=== PATIENT | female | born 1980 | race Caucasian/White ===

== ENCOUNTER → 2017-04-10 09:06 | Outpatient (CLI) | payer BC, SELFPAY ==
[2017-04-10 11:18] LABS: Thyroid Stimulating Hormone 2.67 uIU/ml (0.358-3.740)
[2017-04-10 11:38] LABS: HCG,Quantitative 82 mIU/mL
[2017-04-11 19:01] LABS: Progesterone 8.1 ng/mL (.)
== END ==
PROVIDERS: PCP Internal Medicine Adolescent Medicine; Visit Provider Internal Medicine Adolescent Medicine
DX: Z34.90 Encounter for supervision of normal pregnancy, unspecified, unspecified trimester (principal)
CPT/HCPCS: 36415; 84144; 84443; 84702

== ENCOUNTER → 2017-04-12 08:21 | Outpatient (CLI) | payer BC, SELFPAY ==
[2017-04-12 09:48] LABS: HCG,Quantitative 208 mIU/mL
== END ==
PROVIDERS: PCP Internal Medicine Adolescent Medicine; Visit Provider Internal Medicine Adolescent Medicine
DX: Z34.90 Encounter for supervision of normal pregnancy, unspecified, unspecified trimester (principal)
CPT/HCPCS: 36415; 84702

== ENCOUNTER → 2018-02-19 08:27 | Outpatient (CLI) | payer BC, SELFPAY ==
[2018-02-19 09:37] LABS: Basophils % 0.4 % (0.1-2.0); Eosinophils # 0.3 K/mm3 (0.0-0.4); Eosinophils % 3.3 % (0.1-12.0); Hematocrit 41.9 % (37.0-47.0); Hemoglobin 13.6 g/dL (12.2-16.2); Lymphocytes # 2.2 K/mm3 (0.7-4.5); Lymphocytes % 28.9 % (10-50); Mean Corpuscular HGB Conc 32.4 g/dL (31.8-35.4); Mean Corpuscular Hemoglobin 28.9 pg (27.0-31.2); Mean Corpuscular Volume 89.2 fl (81-99); Mean Platelet Volume 7.9 fl (7.4-10.4); Monocytes # 0.5 K/mm3 (0.1-1.0); Monocytes % 7.2 % (1.7-9.3); Neutrophils # 4.5 K/mm3 (1.8-7.8); Neutrophils % 60.2 % (37.0-80.0); Platelet Count 224 K/mm3 (142-424); Red Cell Distribution Width 15.5 % (11.5-17.5); White Blood Count 7.5 K/mm3 (4.8-10.8)
[2018-02-19 10:30] LABS: Alanine Aminotransferase 32 U/L (12-78); Albumin Level 3.5 gm/dL (3.4-5.0); Albumin/Globulin Ratio 1.1 (1.1-1.8); Alkaline Phosphatase 88 U/L (46-116); Anion Gap 15.2 mEq/L (5-15); Aspartate Amino Transferase 15 U/L (15-37); Bilirubin,Total 0.4 mg/dL (0.2-1.0); Blood Urea Nitrogen 12 mg/dL (7-18); Calcium 8.8 mg/dL (8.5-10.1); Carbon Dioxide 23 mmol/L (21.0-32.0); Chloride 107 mmol/L (98-107); Chol/HDL Ratio 3.5 (1-3.5); Cholesterol 159 mg/dL (140-200); Creatinine,Serum 0.81 mg/dL (0.55-1.02); Estimated Glomerular Filt Rate 80 ml/min (>60); GFR (African American) 96 ML/MIN (>60); Globulin 3.3 gm/dl (1.3-3.2); Glucose 91 mg/dL (74-106); HDL Cholesterol 45 mg/dL (29-89); LDL Cholesterol 103 mg/dL (0-130); Potassium 4.2 mmoL/L (3.5-5.1); Sodium 141 mmol/L (136-145); Thyroid Stimulating Hormone 1.78 uIU/ml (0.358-3.740); Total Protein,Serum 6.8 gm/dL (6.4-8.2); Triglycerides 54 mg/dL (30-200); VLDL Cholesterol 11 mg/dL (0-40)
== END ==
LOC: RAD 08:29 → LAB 02-25 13:26
PROVIDERS: Visit Provider Emergency Medicine
DX: E03.9 Hypothyroidism, unspecified (principal)
CPT/HCPCS: 36415; 80053; 80061; 84439; 84443; 85025

== ENCOUNTER → 2018-03-12 14:03 | Outpatient (CLI) | payer BC, SELFPAY ==
--- NOTE | 2018-03-12 14:08 | US_ITS ---
US thyroid HISTORY: ITS.REASON: ACQUIRED HYPOTHYROIDISM ORDERING PHYSICIAN: Nanette Farah MD PATIENT AGE: 37 years Comparison: None FINDINGS: Right lobe: 4.4 x 1.3 x 1.7 cm. Complex nodule present in the lower pole which is fairly well-circumscribed 13 x 7 mm Left lobe: 3.7 x 1.7 x 1.8 cm. 5 mm slightly hypoechoic nodule upper pole. Isthmus: Unremarkable IMPRESSION: Mildly prominent right lobe of the thyroid gland with bilateral thyroid nodules. The nodule on the right is 13 x 7 mm and the nodule on the left is 5 mm. Recommend 6 month follow-up to confirm short-term stability
== END ==
PROVIDERS: PCP Emergency Medicine; Visit Provider Emergency Medicine
DX: E03.9 Hypothyroidism, unspecified (principal)
CPT/HCPCS: 76536

== ENCOUNTER → 2018-04-28 13:18 | Outpatient (CLI) | payer BC, SELFPAY ==
--- NOTE | 2018-04-28 13:28 | US_ITS ---
US transvaginal No. Since HISTORY: Pelvic pain and bloating, pelvic pressure. Dysfunctional uterine bleeding ITS.REASON: PELVIC PRESSURE ORDERING PHYSICIAN: Nanette Farah MD PATIENT AGE: 37 years Comparison: None FINDINGS: The uterus is 8.5 x 4.2 x 5.8 cm. Combined endometrial thickness is 5 mm. scar is noted. There is an IUD present with shadowing in the endometrial region. There is a small nabothian cyst present at 8 mm. The ovaries have an unremarkable appearance. No adnexal mass or cul-de-sac fluid. IMPRESSION: 1. No acute finding. 2. IUD in place
== END ==
LOC: RAD 13:21
PROVIDERS: PCP Emergency Medicine; Visit Provider Emergency Medicine
DX: R10.2 Pelvic and perineal pain (principal)
CPT/HCPCS: 76830

== ENCOUNTER → 2019-07-14 11:12 | Outpatient (CLI) | payer BC, SELFPAY ==
[2019-07-14 12:48] LABS: Free T4 (Free Thyroxine) 1.03 ng/dl (0.78-2.19)
[2019-07-14 13:02] LABS: Thyroid Stimulating Hormone 1.54 uIU/mL (0.465-4.68)
[2019-07-15 14:34] LABS: Thyroid Peroxidase Antibodies <9 IU/mL (0-34)
[2019-07-16 21:33] LABS: Calcitonin <2.0 pg/mL (0.0-5.0)
[2019-07-17 08:10] LABS: Thyroid Stimulating Immunoglob <0.10 IU/L (0.00-0.55)
== END ==
PROVIDERS: Visit Provider Otolaryngology
DX: E03.9 Hypothyroidism, unspecified (principal)
CPT/HCPCS: 36415; 82308; 84439; 84443; 84445; 86376

== ENCOUNTER → 2019-07-22 09:37 | Outpatient (CLI) | payer BC, SELFPAY ==
--- NOTE | 2019-07-22 09:37 | US_ITS ---
PROCEDURE: US THYROID CLINICAL INDICATION: thyroid nodule follow-up thyroid nodule COMPARISON: THY US thyroid from 03/12/2018 FINDINGS: Right lobe: 4.1 x 1.7 x 1.3 cm. There is a 1 x 0.6 cm heterogeneous nodule in the lower pole not significantly changed. A 3 mm hypoechoic nodule is present in the lower pole and may be part of the larger nodule mentioned. Left lobe: 4 x 1.3 x 1.8 cm. Ill-defined 4 mm nodule hypoechoic in the upper pole Isthmus: Unremarkable Additional findings: No new nodules evident. IMPRESSION: Stable appearance of the thyroid gland. No change in the bilateral thyroid nodules Dictated by: George Perez MD 07/22/2019 12:38 Electronically signed by George Perez MD in [place] 07/22/2019 12:38
== END ==
PROVIDERS: PCP Family Medicine; Visit Provider Otolaryngology
DX: E03.9 Hypothyroidism, unspecified (principal); R13.10 Dysphagia, unspecified
CPT/HCPCS: 76536

== ENCOUNTER → 2019-10-25 15:48 | Outpatient (CLI) | payer OTHER, BC, SELFPAY ==
[2019-10-25 17:02] LABS: Basophils % 0.4 % (0.1-2.0); Eosinophils # 0.2 K/mm3 (0.0-0.4); Eosinophils % 2.2 % (0.1-12.0); Hematocrit 38.1 % (37.0-47.0); Hemoglobin 13.1 g/dL (12.2-16.2); Lymphocytes # 2.5 K/mm3 (0.7-4.5); Mean Corpuscular HGB Conc 34.5 g/dL (31.8-35.4); Mean Corpuscular Hemoglobin 30.9 pg (27.0-31.2); Mean Corpuscular Volume 89.6 fl (81-99); Mean Platelet Volume 7.9 fl (7.4-10.4); Monocytes # 0.5 K/mm3 (0.1-1.0); Monocytes % 5.7 % (1.7-9.3); Neutrophils % 64.6 % (37.0-80.0); Platelet Count 236 K/mm3 (142-424); Red Blood Count 4.25 M/mm3 (4.20-5.40); Red Cell Distribution Width 13.6 % (11.5-17.5); White Blood Count 9.4 K/mm3 (4.8-10.8)
[2019-10-25 18:59] LABS: Strep Scrn Group A (Rapid) Negative (Negative)
== END ==
PROVIDERS: PCP Physician Assistant; Visit Provider Nurse Practitioner Family
DX: Z03.818 Encounter for observation for suspected exposure to other biological agents ruled out (principal)
CPT/HCPCS: 85025; 87430; U0003

== ENCOUNTER 2020-01-29 10:17 | Emergency (ER) | payer OTHER, BC, SELFPAY ==
[2020-01-29 10:20] VITALS: BP 142/99; PULSE 87; RESP 20; TEMP 36.8; O2SAT 100; BMI 33.0
--- NOTE | 2020-01-29 10:49 | HMH.EDUTC ---
[facility] [place] [facility] [place] Clinical Impression: COVID-19 virus test result unknown Disposition: Home, Self-Care Condition on Discharge: Good Instructions: Preventing the Spread of Coronavirus Discharge Instructions Additional Instructions: No sign of a bacterial infection. Likely viral. Viruses can take 7-14 days to run their course. Nasal saline and bulb syringe or nose Edith to remove nasal drainage to help with nasal congestion. Hard to eat, drink, sleep with nasal congestion so important to keep this cleaned out. Monitor temp. Tylenol or Motrin as needed for pain or fever Encourage fluids, water, Gatorade, Powerade, Pedialyte if infant/toddler/child Warm salt water gargles Warm fluids Sore throat lozenges Sleep elevated Humidifier/vaporizer Your covid swab was sent for testing. These results are typically sent to the primary care. Be sure you follow-up in 2-3 days if no improvement so we can review the results and treat if necessary. isolate until results are known, since family member positive isolate for 10 days Follow-up immediately for new or worsening symptoms or no noticeable improvement over the next 48-72 hours. Referrals: Mala Jeffries PA [Primary Care Provider] - Time of Disposition: 10:54 Medical Decision Making - Solitario Inquiry Pt receiving controlled substance: No Vital Signs: 01/29/20 10:20 Temperature 98.2 F Temperature Source Oral Pulse Rate [Right Brachial] 87 Respiratory Rate 20 Blood Pressure [Right Arm] 142/99 H Blood Pressure Mean [Right Arm] 113 Blood Pressure Source [Right Arm] Automatic Cuff Blood Pressure Position [Right Arm] Sitting 02 Sat by Pulse Oximetry 100 Oxygen Delivery Method Room Air Orders (Tests/Meds): ORDERS Category Date Time Status Covid-19 Nasal PCR ([facility]) Routine Lab 01/29/20 10:30 Received [facility] [place] [facility] [place] HPI - General Chief complaint: [facility] Stated complaint: covid test Time Seen by Provider: 01/29/20 10:49 Mode of Arrival: Ambulatory Source of Information: Patient Limitations: No Limitations Description of Symptoms (Recalled from Triage Doc. by RN): PATIENT C/O SORE THROAT, HEADACHE, AND BURNING EYES. REQUESTING COVID TEST D/T 2 FAMILY MEMBERS IN HOUSE ARE POSITIVE HEENT Symptoms (Recalled from RN notes): Yes Resp Symptoms (Recalled from RN notes): No Skin Symptoms (Recalled from RN notes): No MS Symptoms (Recalled from RN notes): No Functional Status (Recalled from RN notes): WNL - History of Present Illness Provider Complaint: 39 yr old female presents for covid testing. Pt states 2 family members are positive for covid. Pt states she has mild symptoms such as sore throat, eyes burning, nasal congestion and headache. - Related Data Home Medications Medication Instructions Recorded Confirmed amitriptyline 10 mg tablet 10 mg PO HS 01/18/20 01/18/20 Previous Rx's Medication Instructions Recorded levothyroxine 75 mcg capsule 75 mcg PO DAILY #90 cap 01/18/20 phentermine 37.5 mg tablet 37.5 mg PO DAILY #30 tab 01/18/20 Allergies Allergy/AdvReac Type Severity Reaction Status Date / Time codeine Allergy Intermediate Rash Verified 01/18/20 13:36 - Worker's Comp Is this a Worker's Comp case?: No [facility] History - Hepatitis A Screen Drug use history?: No High risk sexual behaviors?: No History of sexually transmitted infection?: No Currently employed?: No Childcare worker?: No Do you have indoor plumbing?: Yes Do you have electricity?: Yes Attestation statement:: This patient has been screened for Hepatitis A risk factors. I have reviewed the patient's past medical history: Yes Medical History: Reports:: Anxiety, Depression, Migraine Other Medical History: Reports: Thyroid Disease Other Surgeries: Yes: - Social History Smoking Status: Never smoker Alcohol Intake: never Alcohol Intake Frequency:: holidays/special occasions only Substance Use Type: denies use Occupational Status: employed -
[2020-01-29 10:58] VITALS: BP 142/99; PULSE 87; RESP 20; TEMP 36.8; O2SAT 100
--- NOTE | 2020-01-29 15:04 | PC.NURSE ---
PATIENT NOTIFIED OF NEGATIVE COVID RESULTS
== END 2020-01-29 11:13 | disposition home or self-care (01) ==
PROVIDERS: Emergency Provider Nurse Practitioner Family; PCP Physician Assistant
DX: Z20.828 Contact with and (suspected) exposure to other viral communicable diseases (principal); F41.9 Anxiety disorder, unspecified; Z86.69 Personal history of other diseases of the nervous system and sense organs
CPT/HCPCS: 99201; U0003

== ENCOUNTER 2020-02-01 09:22 | Emergency (ER) | payer OTHER, BC, SELFPAY ==
--- NOTE | 2020-02-01 09:45 | HMH.EDUTC ---
[facility] – [place] Disposition Clinical Impression: Exposure to COVID-19 virus Disposition: Home, Self-Care Condition on Discharge: Good Instructions: Preventing the Spread of Coronavirus Discharge Instructions Additional Instructions: Drink plenty of fluids. Take tylenolfor pain or fever. Follow up with your regular doctor. GO TO THE ER FOR ANY WORSENING SYMPTOMS Referrals: Mala Jeffries PA [Primary Care Provider] - Time of Disposition: 09:46 Medical Decision Making - Medical Records Medical records reviewed: No: I reviewed the patient's medical records. - Solitario Inquiry Pt receiving controlled substance: No Vital Signs: 02/01/20 09:46 02/01/20 09:56 Temperature 98.4 F 98.4 F Temperature Source Oral Oral Pulse Rate 107 H Pulse Rate [Radial] 107 H Respiratory Rate 20 20 Blood Pressure 113/78 Blood Pressure [Right Arm] 113/78 Blood Pressure Mean [Right Arm] 89 Blood Pressure Source Automatic Cuff Blood Pressure Source [Right Arm] Automatic Cuff Blood Pressure Position Sitting Blood Pressure Position [Right Arm] Sitting 02 Sat by Pulse Oximetry 98 Oxygen Delivery Method Room Air Room Air Orders (Tests/Meds): ORDERS Category Date Time Status Covid-19 Nasal PCR ([facility]) Routine Lab 02/01/20 09:38 Received [facility] – [place] HPI - General Stated complaint: covid exposure Time Seen by Provider: 02/01/20 09:45 - History of Present Illness Provider Complaint: She states that she has 2 children at home that currently have covid. The patient states that she feels weak and she has a mild head ache. These symptoms began yesterday for her. - Related Data Home Medications Medication Instructions Recorded Confirmed amitriptyline 10 mg tablet 10 mg PO HS 01/18/20 01/18/20 Previous Rx's Medication Instructions Recorded levothyroxine 75 mcg capsule 75 mcg PO DAILY #90 cap 01/18/20 phentermine 37.5 mg tablet 37.5 mg PO DAILY #30 tab 01/18/20 Allergies Allergy/AdvReac Type Severity Reaction Status Date / Time codeine Allergy Intermediate Rash Verified 01/18/20 13:36 [facility] History - Hepatitis A Screen Attestation statement:: This patient has been screened for Hepatitis A risk factors. I have reviewed the patient's past medical history: Yes Medical History: Reports:: Anxiety, Depression, Migraine Other Medical History: Reports: Thyroid Disease Other Surgeries: Yes: - Social History Smoking Status: Never smoker Alcohol Intake: never Alcohol Intake Frequency:: holidays/special occasions only Substance Use Type: denies use Occupational Status: employed - Psychiatric History Pschychiatric History:: Reports:: Anxiety, Depression Family Hx:: Coronary Artery Disease, Diabetes ROS Obtained: Yes All systems reviewed & no additional complaints - Constitutional Constitutional: Reports system reviewed and no additional complaints, except as docu, Denies chills, Denies fever(s) - Eyes Eyes: Reports system reviewed and no additional complaints, except as docu - ENT Ears, Nose, Mouth, and Throat: Reports system reviewed and no additional complaints, except as docu - Cardiovascular Cardiovascular: Reports system reviewed and no additional complaints, except as docu - Respiratory Respiratory: Yes system reviewed and no additional complaints, except as docu - Gastrointestinal Gastrointestingal: Reports: system reviewed and no additional complaints, except as docu Physical Exam - General General appearance: alert, in no apparent distress - Head Head exam: atraumatic, normocephalic, normal inspection - Eye Eye exam: Present: normal appearance, PERRL, EOMI - ENT ENT exam: Present: normal exam, normal oropharynx, mucous membranes moist, TM's normal bilaterally, normal external ear exam - Neck Neck exam: Present: normal inspection, full ROM, trachea midline. Absent: meningismus, lymphadenopathy - Chest Chest inspection: Present: normal inspection, s
[2020-02-01 09:46] VITALS: BP 113/78; PULSE 107; RESP 20; TEMP 36.9; O2SAT 98; BMI 32.5
[2020-02-01 09:56] VITALS: BP 113/78; PULSE 107; RESP 20; TEMP 36.9; O2SAT 98
[2020-02-02 17:05] LABS: Covid-19 Nasal PCR Sendout Lex Positive
--- NOTE | 2020-02-02 18:52 | PC.NURSE ---
MOTHER NOTIFIED OF POSITIVE COVID RESULTS
== END 2020-02-01 09:57 | disposition home or self-care (01) ==
PROVIDERS: Emergency Provider Nurse Practitioner Family; PCP Physician Assistant
DX: Z20.828 Contact with and (suspected) exposure to other viral communicable diseases (principal)
CPT/HCPCS: 99201; U0004

== ENCOUNTER → 2020-07-16 07:12 | Outpatient (CLI) | payer OTHER, BC, SELFPAY ==
[2020-07-16 08:02] LABS: HCG,Quantitative < 2 mIU/ml (0-5.42)
[2020-07-16 09:12] LABS: Thyroid Stimulating Hormone 0.35 uIU/mL (0.465-4.68)
== END ==
PROVIDERS: Visit Provider Obstetrics & Gynecology
DX: Z01.419 Encounter for gynecological examination (general) (routine) without abnormal findings (principal); R09.89 Other specified symptoms and signs involving the circulatory and respiratory systems
CPT/HCPCS: 36415; 84443; 84702

== ENCOUNTER → 2020-07-17 13:00 | Outpatient (CLI) | payer OTHER, BC, SELFPAY ==
[2020-07-17 15:27] LABS: Vitamin B12 403 pg/mL (239-931)
[2020-07-19 08:43] LABS: Thyroid Peroxidase Antibodies <9 IU/mL (0-34)
[2020-07-19 16:02] LABS: Calcium, Ionized 5.3 mg/dL (4.5-5.6)
[2020-07-20 10:12] LABS: Thyroid Stimulating Immunoglob <0.10 IU/L (0.00-0.55)
== END ==
PROVIDERS: Visit Provider Otolaryngology
DX: E03.9 Hypothyroidism, unspecified (principal)
CPT/HCPCS: 36415; 82330; 82607; 84445; 86376

== ENCOUNTER → 2020-07-19 14:27 | Outpatient (CLI) | payer OTHER, BC, SELFPAY ==
--- NOTE | 2020-07-19 14:28 | US_ITS ---
PROCEDURE: US TRANSVAGINAL CLINICAL INDICATION: IUD placement COMPARISON: US TRANVAG US transvaginal from 04/28/2018 FINDINGS: UTERUS: 9cm x 6cmx 5cm with a combined endometrial thickness of 4.9mm LEFT OVARY: 1ess2hey5.8cm with a volume of 4.1ml. RIGHT OVARY: [id number] with a volume of 10.9ml. The body uterus is somewhat retroflexed. There is an IUD in place in the region of the fundus of the uterus. There is a 16 mm right ovarian cyst with some low level echoes. No cul-de-sac fluid. Nabothian cysts are present. No cul-de-sac fluid IMPRESSION: IUD in place in the fundus of the uterus. Dictated by: George Perez MD 07/19/2020 18:17 George Perez MD in [place] 07/19/2020 18:17
== END ==
PROVIDERS: PCP Emergency Medicine; Visit Provider Obstetrics & Gynecology
DX: Z97.5 Presence of (intrauterine) contraceptive device (principal)
CPT/HCPCS: 76830

== ENCOUNTER → 2020-09-13 08:08 | Outpatient (CLI) | payer OTHER, BC, SELFPAY ==
--- NOTE | 2020-09-13 08:10 | XR_ITS ---
PROCEDURE: XR CHEST 2V CLINICAL HISTORY: cough for 2 months COMPARISON: No exams were available for comparison FINDINGS: The cardiomediastinal silhouette and pulmonary vascularity are within normal limits. The lungs are clear without infiltrates, suspicious nodules, or pleural effusions. Calcified granuloma is present in the right midlung Mild thoracic curvature convex right and lumbar curvature convex left IMPRESSION: No acute finding Dictated by: George Perez MD 09/13/2020 09:16 George Perez MD in [facility] 09/13/2020 09:16
== END ==
PROVIDERS: PCP Physician Assistant; Visit Provider Nurse Practitioner Family
DX: R05 Cough (principal)
CPT/HCPCS: 71046

== ENCOUNTER → 2020-09-14 09:52 | Outpatient (CLI) | payer OTHER, BC, SELFPAY ==
--- NOTE | 2020-09-14 09:55 | CT_ITS ---
PROCEDURE: CT ABDOMEN PELVIS WO CON CLINICAL INDICATION: RECTAL BLEEDING, RLQ PAIN COMPARISON: No exams were available for comparison TECHNIQUE: Axial images obtained with sagittal and coronal reformats. All CT scans at the facility use one or more dose reduction, viz: automated exposure control, ma/kV adjustment per patient size (including targeted exams where dose is matched to indication, i.e. head), or iterative reconstruction technique. FINDINGS: LOWER THORAX: No acute finding ABDOMEN & PELVIS: The liver, gallbladder, spleen, adrenal glands, and pancreas have an unremarkable appearance. There are right renal calculi which measure to 7 mm in the lower pole. No ureteral calculus apparent. No intestinal obstruction or free air. There is a mild amount of retained colonic feces. There is a small umbilical hernia containing fat. No evidence of appendicitis. No evidence of diverticulitis. There is an IUD in place. The left lateral limb appears slightly flexed upon itself and not the usual 90 degree orientation.. The left lateral limb projects posteriorly as well toward the surface of the uterus no acute bony anomalies. IMPRESSION: 1. No acute finding. 2. Right nephrolithiasis. 3. Mild amount of retained colonic feces 4. The left lateral limb of the IUD is not in the normal location expected. Dictated by: George Perez MD 09/14/2020 10:45 George Perez MD in [facility] 09/14/2020 10:45
== END ==
PROVIDERS: PCP Physician Assistant; Visit Provider Physician Assistant
DX: R10.31 Right lower quadrant pain (principal); K62.5 Hemorrhage of anus and rectum
CPT/HCPCS: 74176

== ENCOUNTER → 2020-09-18 14:53 | Outpatient (CLI) | payer OTHER, BC, SELFPAY ==
--- NOTE | 2020-09-18 14:57 | US_ITS ---
PROCEDURE: US THYROID CLINICAL INDICATION: hypothyroiudism COMPARISON: US US THYROID from 07/22/2019 FINDINGS: Right lobe: 3.9 x 1.6 x 1.4 cm. In the lower pole on the right there is a 1 cm mixed I so in slightly hyperechoic nodule not significantly changed. A small cyst is present in the lower pole at 3 mm unchanged Left lobe: 3.3 x 1.2 x 1.6 cm. There is a vague area of decreased echogenicity in the upper pole at 4 mm unchanged. 2 mm cyst is present in the lower pole. Isthmus: Unremarkable Additional findings: IMPRESSION: Small bilateral nodules unchanged. No new findings evident Dictated by: George Perez MD 09/18/2020 17:50 George Perez MD in [place] 09/18/2020 17:50
== END ==
PROVIDERS: PCP Physician Assistant; Visit Provider Otolaryngology
DX: E03.9 Hypothyroidism, unspecified (principal); R53.83 Other fatigue
CPT/HCPCS: 76536

== ENCOUNTER 2020-12-19 09:00 | Emergency (ER) | payer OTHER, BC, SELFPAY ==
[2020-12-19 09:35] LABS: UTC Strep Screen (Rapid) Negative (Negative)
[2020-12-19 09:38] LABS: Coronavirus 19, PCR Not Detected (NotDetected); Influenza A, PCR Not Detected (NotDetected); Influenza B, PCR Not Detected (NotDetected)
[2020-12-19 09:40] VITALS: BP 137/80; PULSE 75; RESP 19; TEMP 36.8; O2SAT 99; BMI 34.3
--- NOTE | 2020-12-19 09:46 | HMH.EDUTC ---
[facility] [place] Clinical Impression: Viral syndrome Disposition: Home, Self-Care Condition on Discharge: Good Instructions: Preventing the Spread of Coronavirus Discharge Instructions, DI for COVID-19 (Suspected or Confirmed ), DI for Viral Syndrome Additional Instructions: Drink plenty of fluids. Take tylenol for pain or fever. Return if you begin to have difficulty breathing. Follow up with your regular doctor. GO TO THE ER FOR ANY WORSENING SYMPTOMS Prescriptions: Brompheniramine/Pseudoephed/Dm [Bromfed Dm Cough Syrup] 5 ml PO Q6HP PRN #240 ml PRN Reason: Cough Transmission Status: Pending to [facility] Ondansetron [Zofran 4mg ODT] 4 mg PO DAILYP PRN #12 tab PRN Reason: Nausea Transmission Status: Pending to [facility] Referrals: Mala Jeffries PA [Primary Care Provider] - Forms: Work/School Release Time of Disposition: 10:34 Medical Decision Making - Medical Records Medical records reviewed: No: I reviewed the patient's medical records. - Solitario Inquiry Pt receiving controlled substance: No Vital Signs: 12/19/20 09:40 Temperature 98.2 F Temperature Source Oral Pulse Rate [Right] 75 Respiratory Rate 19 Blood Pressure [Right Arm] 137/80 Blood Pressure Mean [Right Arm] 99 Blood Pressure Source [Right Arm] Automatic Cuff Blood Pressure Position [Right Arm] Sitting 02 Sat by Pulse Oximetry 99 Oxygen Delivery Method Room Air - Lab Data Lab results reviewed: Yes: I reviewed the patient's lab results. Lab Results 12/19/20 09:19: Strep Scn Rapid Clinic Negative 12/19/20 09:21: SARS-CoV-2 (PCR) Not detected, Influenza A Untype (PCR) Not detected, Influenza Type B (PCR) Not detected Orders (Tests/Meds): ORDERS Category Date Time Status Strep Screen Confirmation Stat Micro 12/19/20 09:19 Received [facility] [place] HPI - General Stated complaint: throat, cough, head, franck,diar, r nose, aches Time Seen by Provider: 12/19/20 09:46 Mode of Arrival: Ambulatory Source of Information: Patient Limitations: No Limitations Description of Symptoms (Recalled from Triage Doc. by RN): pt has had a sore throat, chills and anon-productive cough x2 days HEENT Symptoms (Recalled from RN notes): Yes (sore throat) Resp Symptoms (Recalled from RN notes): Yes (cough) Skin Symptoms (Recalled from RN notes): No MS Symptoms (Recalled from RN notes): No Functional Status (Recalled from RN notes): na - History of Present Illness Provider Complaint: She c/o sore throat, a cough, and diarrhea for the past 1 day. She has been vaccinated against covid-19. 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 - Related Data Home Medications Medication Instructions Recorded Confirmed amitriptyline 10 mg tablet 10 mg PO HS 01/18/20 09/12/20 levonorgestrel 20 mcg/24 hours (6 INTRAUTERI 07/16/20 09/12/20 yrs) 52 mg intrauterine device Previous Rx's Medication Instructions Recorded levothyroxine 75 mcg capsule 75 mcg PO DAILY #90 cap 03/13/20 ibuprofen 800 mg tablet 800 mg PO Q6H #120 tab 07/30/20 lorazepam 0.5 mg tablet 0.5 mg PO BID PRN #14 tab 09/19/20 bupropion HCl 75 mg tablet 75 mg PO BID 14 Days #28 tab 10/17/20 azithromycin 250 mg tablet 250 mg PO QDAY 5 Days #6 tab 10/26/20 Brompheniramine/Pseudoephed/Dm 5 ml PO Q6HP PRN #240 ml 12/19/20 [Bromfed Dm Cough Syrup] Ondansetron [Zofran 4mg ODT] 4 mg PO DAILYP PRN #12 tab 12/19/20 Allergies Allergy/AdvReac Type Severity Reaction Status Date / Time codeine Allergy Intermediate Rash Verified 09/12/20 14:58 - Worker's Comp Is this a Worker's Comp case?: No [facility] History - Hepatitis A Screen Drug use history?: No High risk sexual behaviors?: No History of sexually transmitted infection?: No Currently employed?: No Childcare worker?: No Do you have indoor plumbing?: Yes Do you have electricity?: Yes Attestation statement:: This patient has been screened
[2020-12-19 10:51] VITALS: BP 123/74; PULSE 74; RESP 16; TEMP 36.6; O2SAT 98
== END 2020-12-19 10:55 | disposition home or self-care (01) ==
PROVIDERS: Nurse Practitioner; Emergency Provider Nurse Practitioner Family; PCP Physician Assistant
DX: B34.9 Viral infection, unspecified (principal); Z20.822 Contact with and (suspected) exposure to COVID-19; G43.709 Chronic migraine without aura, not intractable, without status migrainosus; F41.8 Other specified anxiety disorders
CPT/HCPCS: 87880; 99203; C9803; G0463; U0003; U0005

== ENCOUNTER → 2020-12-25 15:24 | Outpatient (CLI) | payer OTHER, BC, SELFPAY ==
--- NOTE | 2020-12-25 15:24 | US_ITS ---
PROCEDURE: US TRANSVAGINAL CLINICAL INDICATION: IUD Placement COMPARISON: US US TRANSVAGINAL from 07/19/[address] ABDOMEN PELVIS WO CON from 09/14/2020 FINDINGS: UTERUS: 8cm x 6cmx 5cm with a combined endometrial thickness of 3.1mm LEFT OVARY: 5ymc7ndd1.2cm with a volume of 10.4ml. RIGHT OVARY: [id number] with a volume of 7.6ml. Small nabothian cysts are present. There is an IUD in place. The proximal aspect of the IUD is lower than expected. The right limb of the IUD is projecting laterally with the tip near the edge of the uterine wall. The left limb is not adequately demonstrated. No cul-de-sac fluid evident. IMPRESSION: Abnormal location of the IUD with the proximal aspect lower than normal in the right limb projecting toward the right lateral uterine wall. Left limb is not adequately visualized. Dictated by: George Perez MD 12/25/2020 18:17 George Perez MD in [facility] 12/25/2020 18:17
== END ==
PROVIDERS: PCP Physician Assistant; Visit Provider Obstetrics & Gynecology
DX: R10.2 Pelvic and perineal pain (principal)
CPT/HCPCS: 76830

== ENCOUNTER → 2021-01-14 13:04 | Outpatient (CLI) | payer OTHER, BC, SELFPAY ==
[2021-01-14 13:07] LABS: MANUAL DIFFERENTIAL MANUAL DIFFERENTIAL (MANUAL DIFF)
[2021-01-14 13:28] LABS: Basophils # 0.1 K/mm3 (0-0.2); Basophils % 0.7 % (0.1-2.0); Eosinophils # 0.2 K/mm3 (0.0-0.4); Eosinophils % 1.7 % (0.1-12.0); Hematocrit 41.4 % (37.0-47.0); Hemoglobin 13.6 g/dL (12.2-16.2); Lymphocytes # 2.3 K/mm3 (0.7-4.5); Lymphocytes % 24.8 % (10-50); Mean Corpuscular HGB Conc 32.8 g/dL (31.8-35.4); Mean Corpuscular Hemoglobin 29.5 pg (27.0-31.2); Mean Corpuscular Volume 89.9 fl (81-99); Mean Platelet Volume 8.4 fl (7.4-10.4); Monocytes # 0.5 K/mm3 (0.1-1.0); Monocytes % 5.4 % (1.7-9.3); Neutrophils # 6.2 K/mm3 (1.8-7.8); Neutrophils % 67.3 % (37.0-80.0); Platelet Count 264 K/mm3 (142-424); Red Cell Distribution Width 15.3 % (11.5-17.5); White Blood Count 9.3 K/mm3 (4.8-10.8)
[2021-01-14 15:02] LABS: Alanine Aminotransferase 14 U/L (12-78); Albumin Level 3.9 g/dl (3.5-5.0); Albumin/Globulin Ratio 1.4 (1.1-1.8); Alkaline Phosphatase 64 U/L (38-126); Anion Gap 12.1 mEq/L (5-15); Aspartate Amino Transferase 21 U/L (14-36); Bilirubin,Total 0.2 mg/dl (0.2-1.3); Blood Urea Nitrogen 12 mg/dl (7-17); Carbon Dioxide 24 mmol/L (22.0-30.0); Chloride 106 mmol/L (98-107); Estimated Glomerular Filt Rate 61 ml/min (>60); GFR (African American) 74 ML/MIN (>60); Globulin 2.8 g/dL (1.3-3.2); Glucose 96 mg/dl (74-100); Potassium 4.1 mmoL/L (3.5-5.1); Sodium 138 mmol/L (136-145); Total Protein,Serum 6.7 g/dl (6.3-8.2)
[2021-01-14 15:17] LABS: Free T4 (Free Thyroxine) 0.94 ng/dl (0.78-2.19)
[2021-01-14 15:31] LABS: Thyroid Stimulating Hormone 1.99 uIU/mL (0.465-4.68)
[2021-01-14 19:15] LABS: Eosinophils % 3 % (0-3); Lymphocytes % 26 % (10-50); Monocytes % 7 % (2-9); Neutrophils % 62 % (42-76); Platelet Estimate Normal; Total Cells Counted 100
[2021-01-16 12:31] LABS: Thyroid Peroxidase Antibodies <8 IU/mL (0-34)
[2021-01-17 07:20] LABS: Thyroid Stimulating Immunoglob <0.10 IU/L (0.00-0.55)
== END ==
PROVIDERS: Visit Provider Otolaryngology
DX: E03.9 Hypothyroidism, unspecified (principal)
CPT/HCPCS: 36415; 80053; 84439; 84443; 84445; 85007; 85014; 85018; 85048; 85049; 86376

== ENCOUNTER → 2021-02-06 06:26 | Outpatient (CLI) | payer OTHER, BC, SELFPAY ==
--- NOTE | 2021-02-06 06:27 | CT_ITS ---
PROCEDURE: CT HEAD/BRAIN WO CON CLINICAL INDICATION: heqadaches COMPARISON: No exams were available for comparison TECHNIQUE: Axial images obtained. All CT scans at the facility use one or more dose reduction, viz: automated exposure control, ma/kV adjustment per patient size (including targeted exams where dose is matched to indication, i.e. head), or iterative reconstruction technique. FINDINGS: No midline shift, mass effect, intracranial hemorrhage, hydrocephalus, or extra-axial fluid collection is evident. The calvarium has an unremarkable appearance. No mastoid effusion. Mild mucosal thickening ethmoid sinuses. No sinus air-fluid level IMPRESSION: No acute intracranial finding Dictated by: George Perez MD 02/07/2021 12:17 George Perez MD in [facility] 02/07/2021 12:17
== END ==
PROVIDERS: PCP Nurse Practitioner Family; Visit Provider Nurse Practitioner Family
DX: R51.9 Headache, unspecified (principal)
CPT/HCPCS: 70450

== ENCOUNTER → 2021-03-04 07:58 | Outpatient (CLI) | payer OTHER, BC, SELFPAY ==
--- NOTE | 2021-03-04 07:58 | MM_ITS ---
PROCEDURE INFORMATION: Exam: MG Bilateral Screening 3D Mammography Exam date and time: 03/04/2021 7:58 AM Age: 40 years old Clinical indication: Screening for breast CA TECHNIQUE: Imaging protocol: Bilateral screening tomosynthesis and 2D mammography including computer-aided detection (CAD) when performed. COMPARISON: No relevant prior studies available. FINDINGS: MAMMOGRAPHY: Breast composition: The breast tissue is heterogeneously dense, which may obscure small masses. Mass: None. Architectural distortion: None. Calcifications: No suspicious calcifications. Asymmetric density: None. Skin thickening: None. Axillary adenopathy: None. IMPRESSION: No mammographic evidence of malignancy. Annual screening is recommended unless otherwise clinically indicated. ASSESSMENT: BI-RADS Category 1: Negative
== END ==
PROVIDERS: PCP Nurse Practitioner Family; Visit Provider Nurse Practitioner Family
DX: Z12.31 Encounter for screening mammogram for malignant neoplasm of breast (principal)
CPT/HCPCS: 77063; 77067

== ENCOUNTER → 2021-03-21 15:31 | Outpatient (CLI) | payer OTHER, BC, SELFPAY ==
--- NOTE | 2021-03-21 15:36 | XR_ITS ---
PROCEDURE: XR FOOT WT BEARING RT 3V CLINICAL INDICATION: pain, injury COMPARISON: No exams were available for comparison FINDINGS: No fracture or dislocation. No lytic or blastic change. There is normal mineralization. The joint spaces are well-preserved. No significant degenerative/arthritic changes. No erosive changes evident. Other findings:None. IMPRESSION: No acute findings. Dictated by: George Perez MD 03/21/2021 16:38 George Perez MD in [facility] 03/21/2021 16:38
--- NOTE | 2021-03-21 15:36 | XR_ITS ---
PROCEDURE: XR ANKLE WT BEARING RT MIN 3V CLINICAL INDICATION: pain, injury COMPARISON: No exams were available for comparison FINDINGS: Bones: No fracture or dislocation. No lytic or blastic change. There is normal mineralization. Joints: The joint spaces are well-preserved. No significant degenerative/arthritic changes. No erosive changes evident. Other findings:None. IMPRESSION: No acute findings. Dictated by: George Perez MD 03/21/2021 16:48 George Perez MD in [facility] 03/21/2021 16:48
== END ==
PROVIDERS: PCP Nurse Practitioner Family; Visit Provider Podiatrist
DX: M79.672 Pain in left foot (principal); M79.671 Pain in right foot; M25.572 Pain in left ankle and joints of left foot; M25.571 Pain in right ankle and joints of right foot
CPT/HCPCS: 73610; 73630

== ENCOUNTER → 2021-04-03 13:58 | Outpatient (CLI) | payer OTHER, BC, SELFPAY ==
--- NOTE | 2021-04-03 13:58 | US_ITS ---
FINAL REPORT CLINICAL HISTORY: IUD placement COMPARISON: December 25, 2020 FINDINGS: Transvaginal sonographic images of the pelvis were obtained. The uterus measures 8.9 x 4.9 x 6.6 cm. The endometrium measures 3 mm, which is within normal limits. No uterine mass is identified. An IUD is present in the uterus with the upper aspect seen at the level of the mid uterus. The right ovary measures 3 cm in length and left ovary measures 3 cm in length. Normal blood flow seen to the ovaries. There are small bilateral ovarian cysts/polyps There is no evidence of free fluid. IMPRESSION: The IUD appears somewhat low and stable in position. Reviewed, Interpreted and Dictated by Michael Spence III, MD Transcribed by Becky Orantes Authenticated by Michael Spence III, MD on 04/03/2021 03:44:[address] [facility]
== END ==
PROVIDERS: PCP Nurse Practitioner Family; Visit Provider Obstetrics & Gynecology
DX: Z30.430 Encounter for insertion of intrauterine contraceptive device (principal)
CPT/HCPCS: 76830

== ENCOUNTER → 2021-04-05 06:40 | Outpatient (CLI) | payer OTHER, SELFPAY ==
--- NOTE | 2021-04-05 06:41 | MR_ITS ---
FINAL REPORT CLINICAL HISTORY: Ankle pain, injury. PLANTAR FOOT PAIN WORSE AROUND HEEL X2WKS. NO INJURY OR TRAUMA. INTERMITTENT SWELLING ON LATERAL SIDE OF FOOT AND ANKLE. FINDINGS: Multiplanar MR imaging of the right ankle was performed with and without contrast. The bony structures are intact without evidence of fracture, bone bruise or marrow edema. No osteochondral lesion is identified. There is thinning of the anterior talofibular ligament, likely represents prior partial tear. The flexor and extensor tendons are intact. There is thickening of the posterior plantar aponeurosis with mild adjacent contrast enhancement consistent with plantar fasciitis. No tear is identified. There is no other area of contrast enhancement. No significant joint effusion is seen. The musculature is intact. There is no evidence of soft tissue mass or cyst. IMPRESSION: Prior partial tear of the anterior talofibular ligament. Plantar fasciitis. Reviewed, Interpreted and Dictated by Michael Spence III, MD Transcribed by Rayna Anne Authenticated by Michael Spence III, MD on 04/05/2021 10:02:34 AM [facility]
== END ==
PROVIDERS: PCP Emergency Medicine; Visit Provider Podiatrist
DX: M76.71 Peroneal tendinitis, right leg (principal); M25.371 Other instability, right ankle
CPT/HCPCS: 73721

== ENCOUNTER → 2021-04-25 11:02 | Outpatient (CLI) | payer OTHER, SELFPAY | PROVIDERS: PCP Nurse Practitioner Family; Visit Provider Nurse Practitioner | DX: Z20.822 Contact with and (suspected) exposure to COVID-19 (principal) | CPT/HCPCS: C9803; U0003; U0005 ==

== ENCOUNTER 2021-07-05 13:21 | Emergency (ER) | payer OTHER, SELFPAY ==
[2021-07-05] VITALS (8 sets, daily range): BP systolic 117–157; BP diastolic 74–96; PULSE 77–108; RESP 13–18; TEMP 36.6; O2SAT 98–100; BMI 33.5
--- NOTE | 2021-07-05 13:33 | ECG_ITS ---
APPROVED REPORT Exam: Resting ECG HR:89 bpm ECG Measurements Heart Rate 89 AXES WI 187 P 19 QRSd 77 QRS -11 QT 341 T 14 QTc 387 Conclusion SINUS RHYTHM Low voltages, Late R wave progression ABNORMAL ECG UNCONFIRMED REPORT Electronically signed by : Sami Mendosa MD 07/05/2021 16:16:28
--- NOTE | 2021-07-05 13:37 | XR_ITS ---
FINAL REPORT CLINICAL HISTORY: CHEST PAIN COMPARISON: 09/13/2020 FINDINGS: SINGLE-VIEW CHEST The heart size is normal. The mediastinum is normal. The lungs are clear. There is no pneumothorax. IMPRESSION: No acute cardiopulmonary process. Reviewed, Interpreted and Dictated by Huber Jc MD Transcribed by Rayna Anne Authenticated by Huber Jc MD on 07/05/2021 02:41:03 PM [facility]
--- NOTE | 2021-07-05 13:50 | PC.NURSE ---
Radiology in room for Xray
[2021-07-05 14:03] LABS: Basophils # 0.1 K/mm3 (0-0.2); Basophils % 1.5 % (0.1-2.0); Eosinophils # 0.1 K/mm3 (0.0-0.4); Eosinophils % 1.7 % (0.1-12.0); Hematocrit 44.7 % (37.0-47.0); Hemoglobin 14.8 g/dL (12.2-16.2); Lymphocytes # 2.1 K/mm3 (0.7-4.5); Lymphocytes % 25.3 % (10-50); Mean Corpuscular HGB Conc 33.1 g/dL (31.8-35.4); Mean Corpuscular Hemoglobin 30.7 pg (27.0-31.2); Mean Corpuscular Volume 92.5 fl (81-99); Mean Platelet Volume 7.8 fl (7.4-10.4); Monocytes # 0.5 K/mm3 (0.1-1.0); Monocytes % 6.4 % (1.7-9.3); Neutrophils # 5.3 K/mm3 (1.8-7.8); Neutrophils % 65.1 % (37.0-80.0); Platelet Count 270 K/mm3 (142-424); Red Blood Count 4.83 M/mm3 (4.20-5.40); Red Cell Distribution Width 14.1 % (11.5-17.5); White Blood Count 8.1 K/mm3 (4.8-10.8)
[2021-07-05 14:07] LABS: Anion Gap 13.3 mEq/L (5-15); Blood Urea Nitrogen 13 mg/dl (7-17); Calcium 9.4 mg/dl (8.4-10.2); Carbon Dioxide 25 mmol/L (22.0-30.0); Chloride 103 mmol/L (98-107); Creatinine Clearance Estimated 131 mL/min (50-200); Estimated Glomerular Filt Rate 79 ml/min (>60); GFR (African American) 96 ML/MIN (>60); Glucose 89 mg/dl (74-100); Potassium 3.3 mmoL/L (3.5-5.1); Sodium 138 mmol/L (136-145)
[2021-07-05 14:12] LABS: D-Dimer 0.68 ug/mL (0.0-0.5)
--- NOTE | 2021-07-05 14:12 | HMH.EDCP ---
ED Disposition Clinical Impression: Pleurisy Disposition: Home, Self-Care Condition on Discharge: Good Instructions: DI for Pleurisy Prescriptions: Ibuprofen [Ibuprofen 800mg Tablet] 800 mg PO TIDP PRN #20 tab PRN Reason: Moderate Pain Transmission Status: Pending to Clinic Pharm[facility] Referrals: Mala Jeffries PA [Primary Care Provider] - - Critical Care Critical Care Time: No Attestation: On 07/05/21, the high probability of a clinically significant, sudden or life threatening deterioration of the following system(s) required my full and direct attention, intervention and personal management. The time I documented below is in addition to time spent performing reported procedures but includes the following listed in this critical care notation. Medical Decision Making - Medical Records Medical records reviewed: Yes: I reviewed the patient's medical records. - Solitario Inquiry Pt receiving controlled substance: No Vital Signs: 07/05/21 13:27 07/05/21 14:00 07/05/21 14:30 Temperature 98 F Temperature Source Oral Pulse Rate 86 77 Pulse Rate [Radial] 108 H Respiratory Rate 16 18 16 Blood Pressure 117/78 122/86 Blood Pressure [Right Arm] 157/96 H Blood Pressure Mean 91 100 Blood Pressure Mean [Right Arm] 116 Blood Pressure Position [Right Arm] Sitting 02 Sat by Pulse Oximetry 98 100 100 Oxygen Delivery Method Room Air 07/05/21 14:45 07/05/21 15:00 07/05/21 15:30 Temperature Temperature Source Pulse Rate 86 84 86 Pulse Rate [Radial] Respiratory Rate 17 14 13 Blood Pressure 135/86 118/80 128/84 Blood Pressure [Right Arm] Blood Pressure Mean 100 92 93 Blood Pressure Mean [Right Arm] Blood Pressure Position [Right Arm] 02 Sat by Pulse Oximetry 100 99 100 Oxygen Delivery Method 07/05/21 15:45 Temperature Temperature Source Pulse Rate 82 Pulse Rate [Radial] Respiratory Rate 14 Blood Pressure 125/82 Blood Pressure [Right Arm] Blood Pressure Mean 97 Blood Pressure Mean [Right Arm] Blood Pressure Position [Right Arm] 02 Sat by Pulse Oximetry 100 Oxygen Delivery Method - Lab Data Lab Results 07/05/21 13:37: Serum HCG, Qual Negative 07/05/21 13:40: WBC 8.1, RBC 4.83, Hgb 14.8, Hct 44.7, MCV 92.5, MCH 30.7, MCHC 33.1, RDW 14.1, Plt Count 270, MPV 7.8, Neut % (Auto) 65.1, Lymph % (Auto) 25.3, Carbon % (Auto) 6.4, Eos % (Auto) 1.7, Baso % (Auto) 1.5, Neut # (Auto) 5.3, Lymph # (Auto) 2.1, Carbon # (Auto) 0.5, Eos # (Auto) 0.1, Baso # (Auto) 0.1 07/05/21 13:40: D-Dimer 0.68 H 07/05/21 13:40: Sodium 138, Potassium 3.3 L, Chloride 103, Carbon Dioxide 25, Anion Gap 13.3, BUN 13, Creatinine 0.80, Estimated Creat Clear 131, Estimated GFR 79, Est GFR ( Amer) 96, Glucose 89, Calcium 9.4, Troponin I < 0.01 Result diagrams: 07/05/21 13:40 07/05/21 13:40 Orders (Tests/Meds): ED MEDICATIONS Discontinued Medications Generic Name Dose Route Start Last Admin Trade Name Freq PRN Reason Stop Dose Admin Iopamidol 70 ml 07/05/21 15:16 07/05/21 15:18 Iopamidol-370 (76%);100ml Bottle IV 07/05/21 15:17 70 ml ONCE ONE Administration Sodium Chloride 40 ml 07/05/21 15:16 07/05/21 15:18 0.9 % Sodium Chloride 50 Ml Vial IV 07/05/21 15:17 40 ml ONCE ONE Administration Sodium Chloride 10 ml 07/05/21 15:16 07/05/21 15:18 Sodium Chloride 0.9% 10ml Syr (Rad Only) IV 07/05/21 15:17 10 ml ONCE ONE Administration ORDERS Category Date Time Status Troponin I Q3H Lab 07/05/21 16:45 Ordered Troponin I Q3H Lab 07/05/21 19:45 Ordered - Radiology Data #1 Image(s): Chest Image Reviewed: Yes I reviewed the patient's radiology results, Yes I reviewed the patient's radiology image, Yes I have reviewed radiologist's interpretation Preliminary Findings: Normal/NAD - CT Data CT Scan: Chest Time Received: 16:[address] Reviewed: Yes: I have reviewed the patient's CT results, I have viewed the radiologist's in
[2021-07-05 14:22] LABS: Troponin I < 0.01 ng/ml (0.00-0.034)
--- NOTE | 2021-07-05 14:42 | PC.NURSE ---
Rounded on pt at this time. No new needs. Advised her MD would be reviewing lab results and be in to speak with her. Pt agreeable with POC at this time.
--- NOTE | 2021-07-05 14:50 | CT_ITS ---
FINAL REPORT TECHNIQUE: Thin section axial CT images were obtained from the lung apices to the upper abdomen. IV contrast was administered. MIP 3-D reformats were obtained. This study was performed with techniques to keep radiation doses as low as reasonably achievable (ALARA). Individualized dose reduction techniques using automated exposure control or adjustment of mA and/or kV according to the patient's size were employed. CLINICAL HISTORY: chest pain, d dimer FINDINGS: The heart size is normal. There is no adenopathy. There is no filling defect to suggest PE. There is no aortic dissection. There is no pericardial effusion. There is ground-glass opacity in the lung bases that may represent acute pneumonitis. No pleural effusion. Limited images of the upper abdomen demonstrate no acute abnormality. IMPRESSION: No pulmonary embolism or aortic dissection. Ground-glass opacity in the lung bases may represent acute pneumonitis. Reviewed, Interpreted and Dictated by Huber Jc MD Transcribed by Carmelo Yu Authenticated by Huber Jc MD on 07/05/2021 04:00:14 PM [facility]
[2021-07-05 14:59] LABS: HCG Qualitative, Serum Negative (Negative)
--- NOTE | 2021-07-05 15:09 | PC.NURSE ---
Radiology taking patient for CTA
--- NOTE | 2021-07-05 15:09 | PC.NURSE ---
pt going for CT scan
--- NOTE | 2021-07-05 15:22 | PC.NURSE ---
PT returned from CT
--- NOTE | 2021-07-05 16:00 | PC.NURSE ---
UPDATED ON PLAN OF CARE
== END 2021-07-05 16:29 | disposition home or self-care (01) ==
PROVIDERS: Emergency Provider Emergency Medicine; PCP Physician Assistant
DX: R09.1 Pleurisy (principal); F41.8 Other specified anxiety disorders; R07.89 Other chest pain; E03.9 Hypothyroidism, unspecified; G43.709 Chronic migraine without aura, not intractable, without status migrainosus; Z79.899 Other long term (current) drug therapy
CPT/HCPCS: 71045; 71275; 80048; 84484; 84703; 85025; 85378; 93005; 99284; Q9967

== ENCOUNTER → 2021-08-29 10:44 | Outpatient (CLI) | payer OTHER, SELFPAY ==
--- NOTE | 2021-08-29 10:45 | US_ITS ---
FINAL REPORT CLINICAL HISTORY: IUD Placement COMPARISON: April 03, 2021 FINDINGS: Transvaginal sonographic images of the pelvis were obtained. The uterus measures 8.8 x 6.9 x 4.8 cm. The endometrium measures 7 mm, which is within normal limits. No uterine mass is identified. The right ovary measures 2.5 cm in length and left ovary measures 2.4 cm in length. There is a 1.3 cm cyst in the left ovary and a 1.4 cm cyst in the right ovary. Normal blood flow seen to the ovaries. Small follicles are present. There is no evidence of free fluid. An IUD is again noted in the lower uterine segment. The position is unchanged from the prior exam. IMPRESSION: IUD noted in the lower uterine segment, unchanged from prior. Bilateral ovarian cysts, largest measuring 1.4 cm. Reviewed, Interpreted and Dictated by Michael Specne III, MD Transcribed by Tracy Leslie Authenticated and [facility]
== END ==
PROVIDERS: PCP Physician Assistant; Visit Provider Obstetrics & Gynecology
DX: Z30.430 Encounter for insertion of intrauterine contraceptive device (principal)
CPT/HCPCS: 76830

== ENCOUNTER → 2021-09-13 06:39 | Outpatient (CLI) | payer OTHER, SELFPAY | PROVIDERS: PCP Physician Assistant; Visit Provider Physician Assistant | DX: J02.9 Acute pharyngitis, unspecified (principal) ==

== ENCOUNTER → 2021-09-19 16:52 | Outpatient (CLI) | payer OTHER, SELFPAY ==
[2021-09-19 17:11] LABS: Coronavirus 19, PCR Not Detected (NotDetected); Influenza A, PCR Not Detected (NotDetected); Influenza B, PCR Not Detected (NotDetected)
== END ==
PROVIDERS: PCP Physician Assistant; Visit Provider Physician Assistant
DX: Z20.822 Contact with and (suspected) exposure to COVID-19 (principal); R68.89 Other general symptoms and signs
CPT/HCPCS: C9803; U0003; U0005

== ENCOUNTER 2021-09-20 16:10 | Emergency (ER) | payer OTHER, SELFPAY ==
[2021-09-20 16:20] VITALS: BP 123/67; PULSE 74; RESP 16; TEMP 36.9; O2SAT 97; BMI 33.1
--- NOTE | 2021-09-20 16:41 | HMH.EDUTC ---
[facility] Disposition Clinical Impression: Contact dermatitis Qualifiers: Contact dermatitis type: allergic Contact dermatitis trigger: non-food plants Qualified Code(s): L23.7 - Allergic contact dermatitis due to plants, except food Disposition: Home, Self-Care Condition on Discharge: Good Instructions: Poison Odilia, Poison Pattison, Poison [place]ac, Contact Dermatitis, DI for Contact Dermatitis Additional Instructions: Try to avoid contact with the offending substance. Don't start the oral steroids until tomorrow. Don't put the topical steroids (triamcinolone) on your face or your groin. Follow up with your regular doctor. GO TO THE ER FOR ANY WORSENING SYMPTOMS OR CONCERNS Prescriptions: methylPREDNISolone [Medrol] 4 mg PO DIRECTED 6 Days #21 packet Transmission Status: Received by [facility] Famotidine [Pepcid 20mg Tablet] 20 mg PO BID 10 Days #20 tab Transmission Status: Received by [facility] Triamcinolone Acetonide 1 applicatio TP TIDP PRN 7 Days #1 gm PRN Reason: Itching Transmission Status: Received by [facility] Referrals: Mala Jeffries PA [Primary Care Provider] - Time of Disposition: 16:44 Medical Decision Making - Medical Records Medical records reviewed: No: I reviewed the patient's medical records. - Solitario Inquiry Pt receiving controlled substance: No Vital Signs: 09/20/21 16:20 09/20/21 16:52 Temperature 98.5 F 98.5 F Temperature Source Oral Pulse Rate 74 Pulse Rate [Left] 74 Respiratory Rate 16 16 Blood Pressure 123/67 Blood Pressure [Right Arm] 123/67 Blood Pressure Mean [Right Arm] 85 02 Sat by Pulse Oximetry 97 Orders (Tests/Meds): ED MEDICATIONS Discontinued Medications Generic Name Dose Route Start Last Admin Trade Name Freq PRN Reason Stop Dose Admin Methylprednisolone Sodium Succinate 125 mg 09/20/21 16:39 09/20/21 16:40 Methylprednisolone Sod Succ 125mg Vial IM 09/20/21 16:40 125 mg ONCE ONE Administration [facility] HPI - General Stated complaint: posiion Odilia Time Seen by Provider: 09/20/21 16:20 Description of Symptoms (Recalled from Triage Doc. by RN): patient comes in for posion odilia rash. rash began last night on her hands, and as the day has progressed it has spread to her neck, hands, and wrists. HEENT Symptoms (Recalled from RN notes): No Resp Symptoms (Recalled from RN notes): No Skin Symptoms (Recalled from RN notes): Yes MS Symptoms (Recalled from RN notes): No Functional Status (Recalled from RN notes): wnl - History of Present Illness Provider Complaint: She states that she has a poison odilia rash on her arms and neck. - Related Data Home Medications Medication Instructions Recorded Confirmed levonorgestrel 20 mcg/24 hours (7 INTRAUTERI 07/16/20 09/18/21 yrs) 52 mg intrauterine device linaclotide 145 mcg capsule 145 mcg PO cap 09/12/21 09/18/21 amitriptyline 10 mg tablet 10 mg PO HS tab 09/18/21 09/18/21 dextroamphetamine-amphetamine ER 25 mg PO DAILY cap 09/18/21 09/18/21 25 mg 24hr capsule,extend release Previous Rx's Medication Instructions Recorded ubrogepant 50 mg tablet See Rx Instructions .ROUTE 06/14/21 .COMPLEX #10 tab Ibuprofen [Ibuprofen 800mg 800 mg PO TIDP PRN #20 tab 07/05/21 Tablet] methylphenidate HCl 10 mg 10 mg PO DAILY #30 cap 08/28/21 capsule,extended release (40-60) sprinkle methylphenidate HCl 10 mg biphasic 10 mg PO DAILY #30 cap 08/30/21 50-50 capsule,extended release sulfamethoxazole 800 1 tab PO BID 10 Days #20 tab 09/12/21 mg-trimethoprim 160 mg tablet famotidine 20 mg tablet 40 mg PO DAILY #90 tab 09/18/21 levothyroxine 75 mcg capsule 75 mcg PO DAILY #90 cap 09/18/21 omeprazole 20 mg capsule,delayed 40 mg PO DAILY #60 cap 09/18/21 release Famotidine [Pepcid 20mg Tablet] 20 mg PO BID 10 Days #20 tab 09/20/21 Triamcinolone Acetonide 1 applicatio TP TIDP PRN 7 Days #1 09/20/21 gm methylPREDNISolone [Medrol] 4 mg PO
[2021-09-20 16:52] VITALS: BP 123/67; PULSE 74; RESP 16; TEMP 36.9
== END 2021-09-20 16:53 | disposition home or self-care (01) ==
PROVIDERS: Emergency Provider Nurse Practitioner Family; PCP Physician Assistant
DX: L23.7 Allergic contact dermatitis due to plants, except food (principal)
CPT/HCPCS: 96372; 99212; G0463

== ENCOUNTER → 2022-07-01 23:15 | Outpatient (CLI) | payer BC, SELFPAY ==
[2022-07-01 19:25] LABS: Basophils % 0.5 % (0.1-2.0); Eosinophils # 0.3 K/mm3 (0.0-0.4); Eosinophils % 3.2 % (0.1-12.0); Hematocrit 43.3 % (37.0-47.0); Hemoglobin 14.2 g/dL (12.2-16.2); Lymphocytes # 2.2 K/mm3 (0.7-4.5); Lymphocytes % 28.4 % (10-50); Mean Corpuscular HGB Conc 32.7 g/dL (31.8-35.4); Mean Corpuscular Hemoglobin 29.6 pg (27.0-31.2); Mean Corpuscular Volume 90.5 fl (81-99); Mean Platelet Volume 8.5 fl (7.4-10.4); Monocytes # 0.5 K/mm3 (0.1-1.0); Monocytes % 6.4 % (1.7-9.3); Neutrophils # 4.8 K/mm3 (1.8-7.8); Neutrophils % 61.5 % (37.0-80.0); Platelet Count 278 K/mm3 (142-424); Red Blood Count 4.79 M/mm3 (4.20-5.40); Red Cell Distribution Width 13.7 % (11.5-17.5); White Blood Count 7.9 K/mm3 (4.8-10.8)
[2022-07-01 19:59] LABS: Alanine Aminotransferase 16 U/L (12-78); Albumin Level 4.1 g/dl (3.5-5.0); Albumin/Globulin Ratio 1.6 (1.1-1.8); Alkaline Phosphatase 76 U/L (38-126); Anion Gap 11.8 mEq/L (5-15); Aspartate Amino Transferase 20 U/L (14-36); Bilirubin,Total 0.3 mg/dl (0.2-1.3); Blood Urea Nitrogen 10 mg/dl (7-17); Calcium 8.9 mg/dl (8.4-10.2); Carbon Dioxide 21 mmol/L (22.0-30.0); Chloride 105 mmol/L (98-107); Cholesterol 170 mg/dl (140-200); Estimated Glomerular Filt Rate 79 ml/min (>60); GFR (African American) 96 ML/MIN (>60); Globulin 2.6 g/dL (1.3-3.2); Glucose 94 mg/dl (74-100); HDL Cholesterol 42 mg/dl (40-60); Potassium 3.8 mmoL/L (3.5-5.1); Sodium 134 mmol/L (136-145); Total Protein,Serum 6.7 g/dl (6.3-8.2); Triglycerides 91 mg/dl (30-150); VLDL Cholesterol 18 mg/dL (0-40)
[2022-07-01 20:10] LABS: Direct LDL Cholesterol 118.31 mg/dL (100-129)
[2022-07-01 20:19] LABS: 25-OH Vitamin D, Total 27.3 ng/mL (30-100)
[2022-07-01 20:32] LABS: Thyroid Stimulating Hormone 1.61 uIU/mL (0.465-4.68)
[2022-07-01 20:51] LABS: Vitamin B12 668 pg/mL (239-931)
== END ==
PROVIDERS: PCP Physician Assistant; Visit Provider Physician Assistant
DX: E03.9 Hypothyroidism, unspecified (principal); E55.9 Vitamin D deficiency, unspecified
CPT/HCPCS: 80053; 80061; 82306; 82607; 84443; 85025

== ENCOUNTER → 2022-07-11 13:44 | Outpatient (CLI) | payer BC, SELFPAY ==
--- NOTE | 2022-07-11 14:57 | MM_ITS ---
PROCEDURE INFORMATION: Exam: MG Bilateral Screening 3D Mammography Exam date and time: 07/11/2022 2:50 PM Age: 41 years old Clinical indication: Screening examination TECHNIQUE: Imaging protocol: Bilateral Screening tomosynthesis and 2D mammography including computer-aided detection (CAD) when performed. COMPARISON: MG MM DIG SCREENING MAMM BI W/CAD 03/04/2021 8:00 AM FINDINGS: MAMMOGRAPHY: Breast composition: There are scattered areas of fibroglandular density. Mass: None. Architectural distortion: None. Calcifications: No suspicious calcifications. Asymmetric density: None. Skin thickening: None. Axillary adenopathy: None. IMPRESSION: No mammographic evidence of malignancy. Annual screening is recommended unless otherwise clinically indicated. ASSESSMENT: BI-RADS Category 1: Negative
== END ==
PROVIDERS: PCP Physician Assistant; Visit Provider Physician Assistant
DX: Z12.31 Encounter for screening mammogram for malignant neoplasm of breast (principal)
CPT/HCPCS: 77063; 77067

== ENCOUNTER 2022-12-29 09:53 | Emergency (ER) | payer BC, SELFPAY ==
[2022-12-29 09:54] VITALS: BP 132/95; PULSE 79; RESP 18; TEMP 36.7; O2SAT 99; BMI 28.3
[2022-12-29 10:08] VITALS: BMI 28.3
[2022-12-29 10:08] LABS: Microscopic, Urine URINE MICROSCOPIC (MICROSCOPIC)
--- NOTE | 2022-12-29 10:09 | PC.NURSE ---
Dr. Damon at BS for pt eval
--- NOTE | 2022-12-29 10:09 | PC.NURSE ---
DR ARTEAGA AT BEDSIDE
[2022-12-29 10:11] LABS: Appearance,Urine CLEAR (Clear); Bilirubin,Urine Negative (Negative); Blood, Urine 1+ (Negative); Color,Urine YELLOW (Yellow); Glucose,Urine (UA) Negative (Negative); Ketones,Urine Negative (Negative); Leukocyte Esterase,Urine 1+ (Negative); Nitrate,Urine Negative (Negative); Protein,Urine Negative (Negative); Specific Gravity, Urine >= 1.030 (1.005-1.030); Urobilinogen,Urine 0.2 EU/dl (0.2)
--- NOTE | 2022-12-29 10:12 | CT_ITS ---
FINAL REPORT TECHNIQUE: After the administration of intravenous contrast, axial images were obtained through the abdomen and pelvis by computed tomography. This study was performed with technique to keep radiation doses as low as reasonably achievable, (ALARA). Individualized dose reduction techniques using automated exposure control or adjustment of the MA and/or KV according to the patient's size were employed. CLINICAL HISTORY: RLQ/R flank pain rad to groin COMPARISON: 09/14/2020 FINDINGS: Abdomen: The lung bases are clear. The liver is normal in size and attenuation. The spleen is unremarkable. The adrenals are normal. The pancreas is unremarkable. There is a 4 mm nonobstructing right renal stone. Mild right hydronephrosis and hydroureter are seen with a 3 mm proximal ureteral stone at L5 and a 3 mm stone at the right UVJ. The aorta is normal in caliber. There is no free fluid or adenopathy. Pelvis: The appendix is normal. There is a 20 mm left corpus luteum cyst noted. The urinary bladder is unremarkable. There is no free fluid or adenopathy. IMPRESSION: Mild right hydroureteronephrosis with 3 mm stones at the proximal ureter and at the right UVJ. Reviewed, Interpreted and Dictated by Michael Spence III, MD Transcribed by Abbie Lopez Authenticated and [facility]
--- NOTE | 2022-12-29 10:14 | HMH.EDGENADL ---
Discharge Plan Disposition Patient Disposition: Xfer Short-Term Hosp Prescriptions Prescriptions: No Action Wegovy 0.5 mg/0.5 mL pen injector 0.5 mg SQ WEEKLY Qty: 2 0RF Rx Instructions: administer weeks 5 through 8 of therapy amitriptyline 10 mg tablet 10 mg PO HS Patient Comments: TAKE ONE TABLET BY MOUTH EVERY DAY AT BEDTIME omeprazole 20 mg capsule,delayed release(DR/EC) 40 mg PO DAILY Qty: 60 3RF levothyroxine 75 mcg capsule 75 mcg PO DAILY Qty: 90 4RF Rx Instructions: Pt requesting Synthroid. dextroamphetamine-amphetamine [Adderall XR] 15 mg capsule,extended release 24hr 15 mg PO DAILY Qty: 30 0RF ergocalciferol (vitamin D2) 1,250 mcg (50,000 unit) capsule 1,250 mcg PO WEEKLY Qty: 14 3RF cholecalciferol (vitamin D3) 50 mcg (2,000 unit) capsule 50 mcg PO DAILY Qty: 90 3RF topiramate [Topamax] 25 mg tablet 25 mg PO BID 30 Days Qty: 60 2RF Ajovy Autoinjector 225 mg/1.5 mL auto-injector 225 mg SQ QMONTH Qty: 1.5 2RF Linzess 145 mcg capsule 145 mcg PO DAILY Qty: 90 1RF Referrals Follow up/Referrals: Claudio Gagnon MD [Primary Care Provider] - See instructions Clinical Impressions Clinical Impression: Calculus, ureteral, UTI (urinary tract infection) Instructions Patient Instructions: DI for Acute Abdominal Pain Discharge ED Provider: Adis Damon General Adult HPI General Chief complaint: Abdominal Pain Stated complaint: right side pain Time Seen by Provider: 12/29/22 10:08 History of Present Illness HPI narrative: Patient is a 42-year-old female with no pertinent past medical history presents emergency department for evaluation of right flank and right lower quadrant abdominal pain. Onset was acute, intermittent over the last 48 hours. It has become severe and persistent over the last 24 hours. It radiates to her groin. Patient still has her appendix. No other acute complaints at this time. Related Data Home Medications Medication Instructions Recorded Confirmed amitriptyline 10 mg tablet 10 mg PO HS 09/18/21 07/01/22 Previous Rx's Medication Instructions Recorded levothyroxine 75 mcg capsule 75 mcg PO DAILY #90 caps 09/18/21 omeprazole 20 mg capsule,delayed 40 mg PO DAILY #60 caps 09/18/21 release dextroamphetamine-amphetamine ER 15 mg PO DAILY #30 caps 06/04/22 15 mg 24hr capsule,extend release (Adderall XR) semaglutide (weight loss) 0.5 0.5 mg (0.5 mL) SQ WEEKLY #2 mL 07/01/22 mg/0.5 mL subcutaneous pen injector (Wegovy) cholecalciferol (vitamin D3) 50 50 mcg PO DAILY #90 caps 07/04/22 mcg (2,000 unit) capsule ergocalciferol (vitamin D2) 1,250 1,250 mcg PO WEEKLY #14 caps 07/04/22 mcg (50,000 unit) capsule topiramate 25 mg tablet (Topamax) 25 mg PO BID 30 days #60 tabs 08/13/22 fremanezumab-vfrm 225 mg/1.5 mL 225 mg (1.5 mL) SQ QMONTH #1.5 mL 09/17/22 subcutaneous auto-injector (Ajovy) linaclotide 145 mcg capsule 145 mcg PO DAILY #90 caps 10/21/22 (Linzess) Allergies Allergy/AdvReac Type Severity Reaction Status Date / Time [id number] Antimigraine Allergy Severe family Verified 07/01/22 15:25 Agents history heart disease codeine Allergy Intermediate Rash Verified 07/01/22 15:25 imitrex AdvReac Intermediate Numbness Uncoded 07/01/22 15:25 PFS PFS Disclaimer: The information contained in this section may have been updated after the patient was seen, as this information can be updated by other users. Medical History (Updated 12/29/22 @ 12:03 by Adis Damon MD) Attention deficit disorder (ADD) in adult BMI 35.0-35.9,adult Encounter for removal of intrauterine contraceptive device (IUD) Hypothyroidism Malpositioned intrauterine device (IUD) Mood disorder Surgical History (Updated 07/01/22 @ 16:52 by MARY Lovelace) History of section Family History (Updated 05/05/22 @ 10:37 by CLOTILDE Chau) Other Diabetes Hype
[2022-12-29 10:19] LABS: Basophils # 0.1 K/mm3 (0-0.2); Basophils % 0.6 % (0.1-2.0); Eosinophils # 0.4 K/mm3 (0.0-0.4); Eosinophils % 4.9 % (0.1-12.0); Hematocrit 43.5 % (37.0-47.0); Hemoglobin 14.1 g/dL (12.2-16.2); Lymphocytes # 3.3 K/mm3 (0.7-4.5); Mean Corpuscular HGB Conc 32.4 g/dL (31.8-35.4); Mean Corpuscular Hemoglobin 28.5 pg (27.0-31.2); Mean Corpuscular Volume 87.8 fl (81-99); Mean Platelet Volume 7.8 fl (7.4-10.4); Monocytes # 0.5 K/mm3 (0.1-1.0); Monocytes % 5.8 % (1.7-9.3); Neutrophils % 48.7 % (37.0-80.0); Platelet Count 274 K/mm3 (142-424); Red Blood Count 4.96 M/mm3 (4.20-5.40); Red Cell Distribution Width 13.6 % (11.5-17.5); White Blood Count 8.2 K/mm3 (4.8-10.8)
[2022-12-29 10:31] LABS: Chloride 110 mmol/L (98-107); Sodium 137 mmol/L (136-145)
[2022-12-29 10:32] LABS: Potassium 4.1 mmoL/L (3.5-5.1)
[2022-12-29 10:34] LABS: Alanine Aminotransferase 22 U/L (12-78); Albumin Level 3.9 g/dl (3.5-5.0); Albumin/Globulin Ratio 1.2 (1.1-1.8); Alkaline Phosphatase 76 U/L (38-126); Anion Gap 13.1 mEq/L (5-15); Aspartate Amino Transferase 25 U/L (14-36); Bilirubin,Total 0.4 mg/dl (0.2-1.3); Blood Urea Nitrogen 10 mg/dl (7-17); Carbon Dioxide 18 mmol/L (22.0-30.0); Creatinine Clearance Estimated 108 mL/min (50-200); Estimated Glomerular Filt Rate 79 ml/min (>60); GFR (African American) 95 ML/MIN (>60); Globulin 3.3 g/dL (1.3-3.2); HCG Qualitative, Serum Negative (Negative); Total Protein,Serum 7.2 g/dl (6.3-8.2)
[2022-12-29 10:35] LABS: Calcium 8.8 mg/dl (8.4-10.2); Glucose 108 mg/dl (74-100)
[2022-12-29 10:35] LABS: Amorphous Sediment,Urine 1+ /lpf; Bacteria,Urine 3+ /lpf
--- NOTE | 2022-12-29 11:00 | PC.NURSE ---
Pt gone to RAD via wheelchair
--- NOTE | 2022-12-29 11:07 | PC.NURSE ---
Pt returned from RAD
--- NOTE | 2022-12-29 11:18 | PC.NURSE ---
Pt reports Even greater pain. Dr. Damon notified and verbal order received for Pyridium 200mg PO and Morphine 4mg IVP 1x.
--- NOTE | 2022-12-29 11:18 | PC.NURSE ---
Pt ambulatory to bathroom with assistance from . Pt back in bed. No other needs at this time.
[2022-12-29 11:19] VITALS: BP 149/86; PULSE 78; O2SAT 98
--- NOTE | 2022-12-29 11:20 | PC.NURSE ---
DR ARTEAGA AT BEDSIDE TO UPDATE PT AND
--- NOTE | 2022-12-29 11:24 | PC.NURSE ---
Dr. Damon at bedside and just prior giving Morphine 4mg IVP he would like to give Dilaudid 1 mg IVP instead. New order placed in MAR and wasted in omni with Galina ANGELES
--- NOTE | 2022-12-29 11:32 | PC.NURSE ---
made contact with [facility] about consulting on this PT. advised they would call us back
--- NOTE | 2022-12-29 11:40 | PC.NURSE ---
Faxed a face sheet to [facility] @ [phone]
--- NOTE | 2022-12-29 11:47 | PC.NURSE ---
Dr. Damon speaking with Dr. Gao for urology at [facility]
--- NOTE | 2022-12-29 11:51 | PC.NURSE ---
Dr. Gao accepted pt. Waiting for return call from hospitalist.
--- NOTE | 2022-12-29 12:01 | PC.NURSE ---
Pt accepted by Dr. Pritchard, hospitalist
--- NOTE | 2022-12-29 12:21 | PC.NURSE ---
Received call back from transfer center. Pt will be going to [facility] room 108. Number to call report [phone].
[2022-12-29 13:23] VITALS: BP 150/68; PULSE 78; RESP 20; TEMP 36.7; O2SAT 98
== END 2022-12-29 13:24 | disposition short-term general hospital (02) ==
PROVIDERS: Emergency Provider Emergency Medicine; PCP Emergency Medicine
DX: N13.0 Hydronephrosis with ureteropelvic junction obstruction (principal); N39.0 Urinary tract infection, site not specified; R10.31 Right lower quadrant pain; E03.9 Hypothyroidism, unspecified; F90.9 Attention-deficit hyperactivity disorder, unspecified type; F39 Unspecified mood [affective] disorder; E66.9 Obesity, unspecified; Z68.35 Body mass index [BMI] 35.0-35.9, adult
CPT/HCPCS: 74177; 80053; 81001; 84703; 85025; 96361; 96374; 96375; 96376; 99285; J0131; J0696; J2405; Q9967

== ENCOUNTER 2023-06-22 17:54 | Outpatient (CLI) | payer BC, SELFPAY ==
[2023-06-22 18:20] LABS: Basophils # 0.1 K/mm3 (0-0.2); Eosinophils # 0.2 K/mm3 (0.0-0.4); Eosinophils % 2.8 % (0.1-12.0); Hematocrit 38.7 % (37.0-47.0); Hemoglobin 12.2 g/dL (12.2-16.2); Mean Corpuscular HGB Conc 31.5 g/dL (31.8-35.4); Mean Corpuscular Hemoglobin 27.5 pg (27.0-31.2); Mean Corpuscular Volume 87.3 fl (81-99); Mean Platelet Volume 8.5 fl (7.4-10.4); Monocytes # 0.4 K/mm3 (0.1-1.0); Monocytes % 6.5 % (1.7-9.3); Neutrophils % 59.8 % (37.0-80.0); Platelet Count 303 K/mm3 (142-424); Red Blood Count 4.44 M/mm3 (4.20-5.40); Red Cell Distribution Width 15.3 % (11.5-17.5); White Blood Count 6.7 K/mm3 (4.8-10.8)
[2023-06-22 18:47] LABS: Alanine Aminotransferase 33 U/L (12-78); Albumin Level 3.7 g/dl (3.5-5.0); Albumin/Globulin Ratio 1.3 (1.1-1.8); Alkaline Phosphatase 89 U/L (38-126); Aspartate Amino Transferase 33 U/L (14-36); Bilirubin,Total 0.2 mg/dl (0.2-1.3); Blood Urea Nitrogen 8 mg/dl (7-17); Carbon Dioxide 25 mmol/L (22.0-30.0); Chloride 108 mmol/L (98-107); Cholesterol 210 mg/dl (140-200); Estimated Glomerular Filt Rate 79 ml/min (>60); GFR (African American) 95 ML/MIN (>60); Globulin 2.8 g/dL (1.3-3.2); Glucose 95 mg/dl (74-100); HDL Cholesterol 53 mg/dl (40-60); Total Protein,Serum 6.5 g/dl (6.3-8.2); Triglycerides 229 mg/dl (30-150); VLDL Cholesterol 46 mg/dL (0-40)
[2023-06-22 18:58] LABS: Direct LDL Cholesterol 119.26 mg/dL (100-129)
[2023-06-22 19:15] LABS: 25-OH Vitamin D, Total 18.3 ng/mL (30-100)
[2023-06-22 19:20] LABS: Thyroid Stimulating Hormone 1.82 uIU/mL (0.465-4.68)
[2023-06-22 19:29] LABS: Sodium 137 mmol/L (136-145)
== END 2023-06-22 23:59 ==
LOC: LAB.DROPOF 17:55
PROVIDERS: PCP Physician Assistant; Visit Provider Physician Assistant
DX: E03.9 Hypothyroidism, unspecified (principal); E55.9 Vitamin D deficiency, unspecified; Z68.34 Body mass index [BMI] 34.0-34.9, adult
CPT/HCPCS: 80053; 80061; 82306; 84443; 85025

== ENCOUNTER 2023-12-29 01:18 | Emergency (ER) | payer BC, SELFPAY ==
[2023-12-29] VITALS (9 sets, daily range): BP systolic 113–170; BP diastolic 50–101; PULSE 65–76; RESP 18; TEMP 36.6; O2SAT 95–100
--- NOTE | 2023-12-29 01:26 | CT_ITS ---
PROCEDURE INFORMATION: Exam: CT Abdomen And Pelvis Without Contrast Exam date and time: 12/29/2023 2:29 AM Age: 43 years old Clinical indication: Abdominal pain; Flank; Right; Additional info: R flank pain HX stones TECHNIQUE: Imaging protocol: Computed tomography of the abdomen and pelvis without contrast. Radiation optimization: All CT scans at this facility use at least one of these dose optimization techniques: automated exposure control; mA and/or kV adjustment per patient size (includes targeted exams where dose is matched to clinical indication); or iterative reconstruction. COMPARISON: CT ABDOMEN PELVIS W CON 12/29/2022 11:04 AM FINDINGS: Liver: Normal. No mass. Gallbladder and biliary ducts: Normal. No calcified stones. No ductal dilation. Pancreas: Normal. No ductal dilation. Spleen: Splenic granulomata Adrenal glands: Normal. No mass. Kidneys and ureters: Mild right hydronephrosis. Right mid ureteral calculus measures 7.7 x 6.6 mm Stomach and bowel: Unremarkable. No obstruction. No mucosal thickening. Appendix: Normal appendix Intraperitoneal space: No visible free peritoneal fluid Vasculature: Unremarkable. No abdominal aortic aneurysm. Lymph nodes: Unremarkable. No enlarged lymph nodes. Urinary bladder: Unremarkable as visualized. Reproductive: Unremarkable as visualized. Bones/joints: Unremarkable. No acute fracture. Soft tissues: Unremarkable. IMPRESSION: Right mid ureteral calculus 7.7 x 6.6 mm. Mild right hydronephrosis.
--- NOTE | 2023-12-29 01:27 | PC.NURSE ---
Dr. Duarte and staff at bedside
[2023-12-29] MEDS: MORPHINE 4MG/ML SYRINGE 4 MG IV ×2 (01:34→01:55)
[2023-12-29] MEDS: 0.9 % SODIUM CHLORIDE 1000ML 1,000 ML 999 ML IV (01:34)
[2023-12-29] MEDS: KETOROLAC 30MG/ML VIAL 15 MG IV (01:35)
[2023-12-29] MEDS: ONDANSETRON 4MG/2ML VIAL 4 MG IV ×2 (01:35→01:55)
[2023-12-29 01:36] LABS: Microscopic, Urine URINE MICROSCOPIC (MICROSCOPIC)
[2023-12-29 01:37] LABS: Basophils # 0.1 K/mm3 (0-0.2); Eosinophils # 0.4 K/mm3 (0.0-0.4); Eosinophils % 2.8 % (0.1-12.0); Hematocrit 38.4 % (37.0-47.0); Lymphocytes # 4.7 K/mm3 (0.7-4.5); Lymphocytes % 34.1 % (10-50); Mean Corpuscular HGB Conc 33.9 g/dL (31.8-35.4); Mean Corpuscular Hemoglobin 26.9 pg (27.0-31.2); Mean Corpuscular Volume 79.2 fl (81-99); Mean Platelet Volume 7.5 fl (7.4-10.4); Monocytes # 0.8 K/mm3 (0.1-1.0); Monocytes % 5.6 % (1.7-9.3); Neutrophils # 7.8 K/mm3 (1.8-7.8); Neutrophils % 56.5 % (37.0-80.0); Platelet Count 293 K/mm3 (142-424); Red Blood Count 4.85 M/mm3 (4.20-5.40); Red Cell Distribution Width 16.9 % (11.5-17.5); White Blood Count 13.7 K/mm3 (4.8-10.8)
[2023-12-29 01:39] LABS: Bilirubin,Urine Negative (Negative); Blood, Urine 3+ (Negative); Color,Urine YELLOW (Yellow); Glucose,Urine (UA) Negative (Negative); Ketones,Urine Negative (Negative); Leukocyte Esterase,Urine Negative (Negative); Nitrate,Urine Negative (Negative); PH,Urine 5.5 (5.0-8.5); Protein,Urine 1+ (Negative); Specific Gravity, Urine >= 1.030 (1.005-1.030); Urobilinogen,Urine 0.2 EU/dl (0.2)
[2023-12-29 01:40] LABS: Appearance,Urine Slightly Cloudy (Clear)
--- NOTE | 2023-12-29 01:40 | PC.NURSE ---
Gave pt a warm blanket and educated on POC and awaiting labs before taken for ct scan. Pt states pain is a little bit better.
[2023-12-29 01:43] LABS: Alanine Aminotransferase 20 U/L (12-78); Albumin Level 4.1 g/dl (3.5-5.0); Albumin/Globulin Ratio 1.4 (1.1-1.8); Alkaline Phosphatase 65 U/L (38-126); Anion Gap 11.3 mEq/L (5-15); Aspartate Amino Transferase 23 U/L (14-36); Bilirubin,Total 0.5 mg/dl (0.2-1.3); Blood Urea Nitrogen 13 mg/dl (7-17); Calcium 9.7 mg/dl (8.4-10.2); Carbon Dioxide 18 mmol/L (22.0-30.0); Chloride 108 mmol/L (98-107); Creatinine Clearance Estimated 114 mL/min (50-200); Estimated Glomerular Filt Rate 78 ml/min (>60); GFR (African American) 95 ML/MIN (>60); Glucose 114 mg/dl (74-100); Potassium 3.3 mmoL/L (3.5-5.1); Sodium 134 mmol/L (136-145); Total Protein,Serum 7.1 g/dl (6.3-8.2)
[2023-12-29 01:48] LABS: Bacteria,Urine 1+ /lpf; RBC,Urine 20-50 #/hpf (0-3)
[2023-12-29 01:48] LABS: HCG Qualitative, Serum Negative (Negative)
--- NOTE | 2023-12-29 01:55 | PC.NURSE ---
Reassessed pt, she is still dry-heaving and having significant pain 20 min after medications given. I s/w Dr. Duarte and new orders given per MAY.
[2023-12-29] MEDS: PROMETHAZINE HCL 25MG/ML 1ML VIAL 12.5 MG IV (02:14)
[2023-12-29] MEDS: HYDROMORPHONE 2MG/ML SYRINGE 0.5 MG IV (02:14)
[2023-12-29] MEDS: SODIUM CHLORIDE 0.9% 25ML BAG 25 ML IV (02:15)
--- NOTE | 2023-12-29 02:15 | ED_ITS ---
Discharge Plan Disposition Patient Disposition: Home, Self-Care Condition: Fair Prescriptions Prescriptions: New oxycodone 5 mg tablet 5 mg PO Q6H PRN (Reason: pain (scale score 7-10)) Qty: 10 0RF tamsulosin 0.4 mg capsule 0.4 mg PO HS Qty: 10 0RF promethazine 12.5 mg tablet 12.5 mg PO TID PRN (Reason: nausea and vomiting) Qty: 10 0RF No Action amitriptyline 10 mg tablet 10 mg PO HS Qty: 90 1RF cholecalciferol (vitamin D3) 50 mcg (2,000 unit) capsule 50 mcg PO DAILY Qty: 90 3RF ergocalciferol (vitamin D2) 1,250 mcg (50,000 unit) capsule 1,250 mcg PO WEEKLY Qty: 14 3RF levothyroxine 75 mcg tablet 75 mcg PO DAILY Qty: 90 1RF omeprazole 40 mg capsule,delayed release(DR/EC) 40 mg PO DAILY Qty: 90 1RF Rx Instructions: swallow whole; do not crush, chew, dissolve, cut, break Nurtec ODT 75 mg tablet,disintegrating 75 mg PO ONCE PRN (Reason: migraine headache) Qty: 16 1RF topiramate [Topamax] 25 mg tablet 25 mg PO BID Qty: 180 1RF norethindrone (contraceptive) [Casie] 0.35 mg tablet 0.35 mg PO DAILY Qty: 28 3RF Referrals Follow up/Referrals: Mala Jeffries PA [Primary Care Provider] - See instructions Liam Blackwell MD [Staff Physician] - See instructions (R ureteral stone) Activity Restrictions/Add. Instructions Additional Instructions/Restrictions: You were evaluated in the ER and are appropriate for discharge at this time. Take the prescribed medications as directed. Take Tylenol, ibuprofen if needed for pain, if these do not control your pain, then take oxycodone. Take the prescribed Phenergan if needed for nausea and vomiting. Take the tamsulosin nightly to help pass the stone. Please call Dr. Blackwell's office for follow-up. Also make an appointment with your primary care doctor for reevaluation in a few days. Return to the ER with new, worsening, or otherwise concerning symptoms Clinical Impressions Clinical Impression: Calculus of right ureter Instructions Patient Instructions: DI for Kidney Stones Print Language Print Language: [place] Discharge ED Provider: Lucinda Duarte General Adult HPI General Chief complaint: Abdominal Pain Stated complaint: kidney stone Time Seen by Provider: 12/29/23 01:23 Mode of Arrival: Ambulatory Source of Information: Patient Limitations: No Limitations Description of Symptoms (Recalled from ER Triage Doc. by RN): Patient complains of right flank pain radiating to side and leg. Onset 1 hour ago. History of Present Illness HPI narrative: 43-year-old female presents to the ER with complains of sudden onset right flank pain radiating to her right side and her right leg. Symptoms onset 1 hour ago. She states these symptoms are similar but actually worse than when she had kidney stones approximately 1 year ago. My review of records from that visit 1 year ago demonstrates patient had to be transferred for multiple ureteral calculi. Patient reports nausea and vomiting. She states she attempted to take Tylenol and ibuprofen but had emesis. ROS otherwise negative. Related Data Previous Rx's ?Medication ?Instructions ?Recorded amitriptyline 10 mg tablet 10 mg PO HS #90 tabs 06/22/23 cholecalciferol (vitamin D3) 50 50 mcg PO DAILY #90 caps 06/22/23 mcg (2,000 unit) capsule ergocalciferol (vitamin D2) 1,250 1,250 mcg PO WEEKLY #14 caps 06/22/23 mcg (50,000 unit) capsule levothyroxine 75 mcg tablet 75 mcg PO DAILY #90 tabs 06/22/23 omeprazole 40 mg capsule,delayed 40 mg PO DAILY #90 caps 06/22/23 release rimegepant 75 mg disintegrating 75 mg PO ONCE PRN migraine 06/22/23 tablet (Nurtec ODT) headache #16 tabs topiramate 25 mg tablet (Topamax) 25 mg PO BID #180 tabs 06/22/23 Casie 0.35 mg tablet 0.35 mg PO DAILY #28 tabs 08/31/23 (norethindrone (contraceptive)) oxycodone 5 mg tablet 5 mg PO Q6H PRN pain (scale score 12/29/23 7-10) #10 tabs promethazine 12.5 mg tablet 12.5 mg PO TID PRN nausea and 12/29/23 vomiting #10 tabs tamsulosin 0.4 mg capsule 0.4 mg PO HS #10 caps 12/29/23 Allergies Allergy/AdvReac Type Severity Reaction Status Date / Time [id number] Antimigraine Allergy Severe family Verified 08/31/23 08:20 Agents history heart disease codeine Allergy Intermediate Rash Verified 08/31/23 08:20 imitrex AdvReac Intermediate Numbness Uncoded 08/31/23 08:20 [facility] Disclaimer: The information contained in this section may have been updated after the patient was seen, as this information can be updated by other users. Medical History (Updated 12/29/23 @ 04:58 by Lucinda Duarte MD) Menstrual bloating Pelvic pain Dysmenorrhea Abnormal uterine bleeding Migraine headache Mood disorder Attention deficit disorder (ADD) in adult Hypothyroidism Surgical History History of section Family History Other Diabetes Hypertension Thyroid disorder Social History Smoking Status: Never smoker alcohol intake: current alcohol intake frequency: holidays/special occasions only substance use type: denies use current occupational status: employed Travel in the last 8 weeks: None Other Medical History Have you received the Flu Vaccine for this season: Yes Have you received the Pneumonia Vaccine: Yes ROS Obtained: Yes All systems reviewed & no additional complaints except as documented Positive ROS per HPI Physical Exam General General appearance: alert and in no apparent distress Head Head exam: atraumatic and normocephalic Eye Eye exam: Present PERRL and EOMI ENT ENT exam: Present mucous membranes moist Neck Neck exam: Present normal inspection and full ROM Chest Chest inspection: Present symmetric chest wall rise Respiratory Respiratory exam: Present normal lung sounds bilaterally; Absent respiratory distress, wheezes or stridor Cardiovascular Cardiovascular exam: Present regular rate and normal rhythm Abdominal Exam Abdominal exam: Present soft; Absent distention, tenderness, guarding or rebound Extremities Exam Extremities exam: Present full ROM; Absent edema Back Exam Back exam: Present CVA tenderness (R); Absent CVA tenderness (L) Neurological Exam Neurological exam: Present alert and oriented X3; Absent motor sensory deficit Psychiatric Psychiatric exam: Present normal affect and normal mood Skin Skin exam: Present warm and dry Medical Decision Making Medical Records Medical records reviewed: Yes I reviewed the patient's medical records. Screening: Per USPSTF and CDC recommendations, given the prevalence of disease in our region, it is our hospital?s policy to screen for HIV and viral Hepatitis for all patients aged 18 and over and those with ongoing risk factors. MR Comment: See HPI Solitario Inquiry Pt receiving controlled substance: Yes Solitario was queried for this patient: Yes Reference #:: [id number] Risks and benefits of using a controlled substance: were discussed with pt by me Vital Signs: 12/29/23 01:19 12/29/23 01:37 12/29/23 02:51 Temperature 97.9 F 97.9 F Temperature Source Oral Pulse Rate 70 70 Pulse Rate [Right Brachial] 71 Respiratory Rate 18 18 Blood Pressure 170/101 H 113/50 L Blood Pressure [Left Arm] 146/92 H Blood Pressure Mean 124 71 Blood Pressure Mean [Left Arm] 110 Blood Pressure Source Blood Pressure Source [Left Arm] Automatic Cuff Blood Pressure Position Blood Pressure Position [Left Arm] Supine 02 Sat by Pulse Oximetry 99 100 100 Oxygen Delivery Method Room Air 12/29/23 03:00 12/29/23 03:40 12/29/23 04:00 Temperature Temperature Source Pulse Rate 65 76 68 Pulse Rate [Right Brachial] Respiratory Rate Blood Pressure 121/62 141/77 H 143/68 H Blood Pressure [Left Arm] Blood Pressure Mean 79 Blood Pressure Mean [Left Arm] Blood Pressure Source Blood Pressure Source [Left Arm] Blood Pressure Position Blood Pressure Position [Left Arm] 02 Sat by Pulse Oximetry 100 95 97 Oxygen Delivery Method 12/29/23 04:30 12/29/23 04:59 12/29/23 05:01 Temperature 98 F 98 F Temperature Source Oral Oral Pulse Rate 69 69 70 Pulse Rate [Right Brachial] Respiratory Rate 18 18 Blood Pressure 116/73 116/73 118/70 Blood Pressure [Left Arm] Blood Pressure Mean Blood Pressure Mean [Left Arm] Blood Pressure Source Automatic Cuff Automatic Cuff Blood Pressure Source [Left Arm] Blood Pressure Position Supine Supine Blood Pressure Position [Left Arm] 02 Sat by Pulse Oximetry 97 96 Oxygen Delivery Method Room Air Room Air Lab Data Lab Results 12/29/23 01:21: Urine Color Yellow, Urine Appearance Slightly cloudy, Urine pH 5.5, Ur Specific [place] >= 1.030, Urine Protein 1+ A, Urine Glucose (UA) Negative, Urine Ketones Negative, Urine Blood 3+ A, Urine Nitrate Negative, Urine Bilirubin Negative, Urine Urobilinogen 0.2, Ur Leukocyte Esterase Negative, Urine RBC 20-50, Urine WBC 3-5, Ur Squamous Epith Cells 3-5, Urine Bacteria 1+ 12/29/23 01:28: WBC 13.7 H, RBC 4.85, Hgb 13.0, Hct 38.4, MCV 79.2 L, MCH 26.9 L , MCHC 33.9, RDW 16.9, Plt Count 293, MPV 7.5, Neut % (Auto) 56.5, Lymph % (Auto) 34.1, Early % (Auto) 5.6, Eos % (Auto) 2.8, Baso % (Auto) 1.0, Neut # (Auto) 7.8, Lymph # (Auto) 4.7 H, Early # (Auto) 0.8, Eos # (Auto) 0.4, Baso # (Auto) 0.1, Sodium 134 L, Potassium 3.3 L, Chloride 108 H, Carbon Dioxide 18 L, Anion Gap 11.3, BUN 13, Creatinine 0.80, Estimated Creat Clear 114, Estimated GFR 78, Est GFR ( Amer) 95, Glucose 114 H, Calcium 9.7, Total Bilirubin 0.5, AST 23, ALT 20, Alkaline Phosphatase 65, Total Protein 7.1, Albumin 4.1, Globulin 3.0, Albumin/Globulin Ratio 1.4, Serum HCG, Qual Negative, HIV 1&2 Antibody Rapid Nonreactive 12/29/23 01:28 12/29/23 01:28 Orders (Tests/Meds): ED MEDICATIONS Discontinued Medications Generic Name Dose Route Start Last Admin Trade Name Freq PRN Reason Stop Dose Admin Hydromorphone HCl 0.5 mg 12/29/23 02:10 12/29/23 02:14 Hydromorphone 2mg/Ml Syringe IV 12/29/23 02:11 0.5 mg ONCE ONE Administration Sodium Chloride 1,000 mls @ 999 mls/hr 12/29/23 01:30 12/29/23 01:34 Sod Chlor 0.9% 1000ml Bag IV 12/29/23 02:30 999 mls/hr .Q1H1M ONE Administration Ketorolac Tromethamine 15 mg 12/29/23 01:26 12/29/23 01:35 Ketorolac 30mg/Ml Vial IV 12/29/23 01:27 15 mg ONCE ONE Administration Morphine Sulfate 4 mg 12/29/23 01:26 12/29/23 01:34 Morphine 4mg/Ml Syringe IV 12/29/23 01:27 4 mg ONCE ONE Administration Morphine Sulfate 4 mg 12/29/23 01:49 12/29/23 01:55 Morphine 4mg/Ml Syringe IV 12/29/23 01:50 4 mg ONCE ONE Administration Ondansetron HCl 4 mg 12/29/23 01:26 12/29/23 01:35 Ondansetron 4mg/2ml Vial IV 12/29/23 01:27 4 mg ONCE ONE Administration Ondansetron HCl 4 mg 12/29/23 01:49 12/29/23 01:55 Ondansetron 4mg/2ml Vial IV 12/29/23 01:50 4 mg ONCE ONE Administration Oxycodone HCl 5 mg 12/29/23 05:07 12/29/23 05:09 Oxycodone 5mg Immediate Release Tablet PO 12/29/23 05:08 5 mg ONCE ONE Administration Promethazine HCl 12.5 mg 12/29/23 02:10 12/29/23 02:14 Promethazine Hcl 25mg/Ml 1ml Vial IV 12/29/23 02:11 12.5 mg ONCE ONE Administration Sodium Chloride 25 ml 12/29/23 02:10 12/29/23 02:15 Sodium Chloride 0.9% 25ml Bag IV 12/29/23 02:11 25 ml ONCE ONE Administration Tamsulosin HCl 0.4 mg 12/29/23 02:45 12/29/23 02:48 Tamsulosin 0.4mg Capsule PO 12/29/23 02:46 0.4 mg ONCE ONE Administration ORDERS Category Date Time Status CT abdomen pelvis wo con Stat Cat Scan 12/29/23 01:26 Completed CBC w/Auto Diff [Complete Blood Count Auto Diff] Stat Lab 12/29/23 01:28 Completed CMP [Comprehensive Metabolic Panel] Stat Lab 12/29/23 01:28 Completed HCG Qualitative, Serum Stat Lab 12/29/23 01:28 Completed HIV (1&2) Antibody Rapid Stat Lab 12/29/23 01:28 Completed Hep C Ab with Reflex to RNA Stat Lab 12/29/23 01:28 Received Urinalysis and Microscopic Stat Lab 12/29/23 01:21 Completed Medical Decision Narrative: In summary, this 43-year-old female with history of ureterolithiasis presents to the emergency department today with sudden onset right flank pain with associated emesis. On initial evaluation patient is hemodynamically stable but uncomfortable appearing, afebrile, right CVA tenderness present. Differential diagnosis includes but is not limited to nephrolithiasis, ureterolithiasis, hydronephrosis, hydroureter, urinary tract infection, pyelonephritis, I considered the possibility of appendicitis or biliary dysfunction however I do not appreciate findings of these on exam. Based on these concerns, I ordered serum labs, urinalysis, CT abdomen pelvis. Patient received IV fluids, Toradol, morphine, Zofran initially for treatment. These did not improve her symptoms and she received additional doses of morphine and Zofran. Labs personally reviewed demonstrate mild leukocytosis but no anemia, platelets normal at 293, CMP with no findings of kidney dysfunction, UA with positive RBCs but not consistent with findings of infection, nitrate negative, trace WBCs and bacteria although this was contaminated with squamous cells. Patient does not have any infectious symptoms and will not receive antibiotics. On further reassessment patient continues to have intractable nausea and pain. Phenergan and Dilaudid administered. CT imaging personally interpreted demonstrate right ureteral stone approximately 7 mm with hydronephrosis. See radiology read for final interpretation On reassessment patient continues to be stable. Her pain is well-controlled at this time. Ureterolithiasis of the size may pass on its own, patient received tamsulosin. Since her pain is well-controlled I believe patient is appropriate for discharge at this time and she agrees with this. She would like to try home management which I believe is reasonable. I prescribed oxycodone, Phenergan, tamsulosin for outpatient management of symptoms. She was given follow-up with Dr. Blackwell for reevaluation. Patient was given instructions on symptomatic management, follow up instructions, and strict return precautions for the emergency department Especially since there is a chance patient does not spontaneously pass the stone which she understands. Patient indicated understanding and was discharged in stable condition. Critical Care Critical Care Time Critical Care Time: No
[2023-12-29 02:44] LABS: HIV (1&2) Antibody Rapid NONREACTIVE (NONREACTIVE)
[2023-12-29] MEDS: TAMSULOSIN 0.4MG CAPSULE 0.4 MG PO (02:48)
[2023-12-29] MEDS: OXYCODONE 5MG IMMEDIATE RELEASE TABLET 5 MG PO (05:09)
[2023-12-30 10:14] LABS: HCV Ab Non Reactive (Non Reactive)
== END 2023-12-29 05:11 | disposition home or self-care (01) ==
PROVIDERS: Emergency Provider Emergency Medicine; PCP Physician Assistant
DX: N20.1 Calculus of ureter (principal); R10.9 Unspecified abdominal pain; R11.2 Nausea with vomiting, unspecified
CPT/HCPCS: 74176; 80053; 81001; 84703; 85025; 86803; 87389; 96361; 96374; 96375; 99284; J1170; J1885; J2270; J2405; J2550; J7030

== ENCOUNTER 2023-12-31 22:48 | Emergency (ER) | payer BC, SELFPAY ==
[2023-12-31 22:49] VITALS: BP 143/93; PULSE 90; RESP 20; TEMP 36.9; O2SAT 98
--- NOTE | 2023-12-31 22:59 | CT_ITS ---
PROCEDURE INFORMATION: Exam: CT Abdomen And Pelvis Without Contrast Exam date and time: 12/31/2023 11:36 PM Age: 43 years old Clinical indication: Abdominal pain; Flank; Right; Additional info: R ureteral stone recurrent pain TECHNIQUE: Imaging protocol: Computed tomography of the abdomen and pelvis without contrast. Total images: 322 Radiation optimization: All CT scans at this facility use at least one of these dose optimization techniques: automated exposure control; mA and/or kV adjustment per patient size (includes targeted exams where dose is matched to clinical indication); or iterative reconstruction. COMPARISON: CT ABDOMEN PELVIS WO CON 12/29/2023 2:29 AM FINDINGS: Lungs: Lung bases are clear. Heart: Normal heart size. Liver: Normal. No mass. Gallbladder and biliary ducts: Normal. No calcified stones. No ductal dilation. Pancreas: Normal. No ductal dilation. Spleen: Calcified splenic granuloma. No splenomegaly. Adrenal glands: Normal. No mass. Kidneys and ureters: Interval worsening moderate to severe right hydroureteronephrosis. Interval distal migration of a 6 x 8 mm right ureteral stone, now located within the pelvis, just above the level of the acetabulum. No intrarenal calculi. Unremarkable left kidney and left ureter. Minor left perinephric edema. Stomach and bowel: Unremarkable stomach and duodenum. No ileus or bowel obstruction. Unremarkable small bowel and terminal ileum. Mobile cecum projecting in the right upper quadrant. Otherwise, unremarkable colon. Collapsed rectum. Appendix: Normal appendix. Intraperitoneal space: Unremarkable. No free air. No significant fluid collection. Vasculature: Abdominal aorta is normal in caliber. Pelvic phleboliths. Lymph nodes: Unremarkable. No enlarged lymph nodes. Urinary bladder: Collapsed bladder. Reproductive: Physiologic uterus and ovaries. Bones/joints: Unremarkable. No acute osseous abnormality or concerning bone lesions. Soft tissues: Diastasis of the rectus fascia with tiny fat containing umbilical hernia. IMPRESSION: 1. Interval worsening moderate to severe right hydroureteronephrosis. 2. Interval distal migration of a 6 x 8 mm right ureteral stone. 3. Additional stable chronic and incidental findings.
--- NOTE | 2023-12-31 23:03 | ED_ITS ---
Discharge Plan Disposition Patient Disposition: Xfer Short-Term Hosp Condition: Fair Prescriptions Prescriptions: No Action amitriptyline 10 mg tablet 10 mg PO HS Qty: 90 1RF cholecalciferol (vitamin D3) 50 mcg (2,000 unit) capsule 50 mcg PO DAILY Qty: 90 3RF ergocalciferol (vitamin D2) 1,250 mcg (50,000 unit) capsule 1,250 mcg PO WEEKLY Qty: 14 3RF levothyroxine 75 mcg tablet 75 mcg PO DAILY Qty: 90 1RF omeprazole 40 mg capsule,delayed release(DR/EC) 40 mg PO DAILY Qty: 90 1RF Rx Instructions: swallow whole; do not crush, chew, dissolve, cut, break Nurtec ODT 75 mg tablet,disintegrating 75 mg PO ONCE PRN (Reason: migraine headache) Qty: 16 1RF topiramate [Topamax] 25 mg tablet 25 mg PO BID Qty: 180 1RF norethindrone (contraceptive) [Casie] 0.35 mg tablet 0.35 mg PO DAILY Qty: 28 3RF oxycodone 5 mg tablet 5 mg PO Q6H PRN (Reason: pain (scale score 7-10)) Qty: 10 0RF tamsulosin 0.4 mg capsule 0.4 mg PO HS Qty: 10 0RF promethazine 12.5 mg tablet 12.5 mg PO TID PRN (Reason: nausea and vomiting) Qty: 10 0RF Referrals Follow up/Referrals: Mala Jeffries PA [Primary Care Provider] - See instructions Clinical Impressions Clinical Impression: Calculus of distal right ureter, Right flank pain, Nausea & vomiting Stand Alone Forms Stand Alone Forms: Transfer Record - ED Instructions Patient Instructions: DI for Urinary Tract Infection (UTI), DI for Urinary Tract Infection in Children Print Language Print Language: Maori Discharge ED Provider: Kemal Corrigan General Adult HPI General Chief complaint: Urogenital-Female Stated complaint: poss kidney stone,vomiting Time Seen by Provider: 12/31/23 22:58 History of Present Illness HPI narrative: 43-year-old female presents to the ER with right flank pain. She was evaluated by me in our ER a few days ago for similar symptoms. At that time she had approximately 7 mm right ureteral calculus but wanted to try at home management. Since she did not have kidney dysfunction at that time I believe that was reasonable. Patient reports in the last few days she has taken a total of 5 of the prescribed oxycodone and has taken Phenergan for symptoms. She states she was tolerating her symptoms well the last 2 days, but today she was at [facility] practice with her daughter and the pain suddenly got severely worse, she went home and took an oxycodone without improvement of symptoms, she has also tried taking a hot bath. Patient reports decreased urine output today. She denies fevers, chills, chest pain, difficulty breathing. She is having nausea, vomiting with the severe pain in the right flank. She denies dysuria or keara hematuria. Related Data Previous Rx's ?Medication ?Instructions ?Recorded amitriptyline 10 mg tablet 10 mg PO HS #90 tabs 06/22/23 cholecalciferol (vitamin D3) 50 50 mcg PO DAILY #90 caps 06/22/23 mcg (2,000 unit) capsule ergocalciferol (vitamin D2) 1,250 1,250 mcg PO WEEKLY #14 caps 06/22/23 mcg (50,000 unit) capsule levothyroxine 75 mcg tablet 75 mcg PO DAILY #90 tabs 06/22/23 omeprazole 40 mg capsule,delayed 40 mg PO DAILY #90 caps 06/22/23 release rimegepant 75 mg disintegrating 75 mg PO ONCE PRN migraine 06/22/23 tablet (Nurtec ODT) headache #16 tabs topiramate 25 mg tablet (Topamax) 25 mg PO BID #180 tabs 06/22/23 Casie 0.35 mg tablet 0.35 mg PO DAILY #28 tabs 08/31/23 (norethindrone (contraceptive)) oxycodone 5 mg tablet 5 mg PO Q6H PRN pain (scale score 12/29/23 7-10) #10 tabs promethazine 12.5 mg tablet 12.5 mg PO TID PRN nausea and 12/29/23 vomiting #10 tabs tamsulosin 0.4 mg capsule 0.4 mg PO HS #10 caps 12/29/23 Allergies Allergy/AdvReac Type Severity Reaction Status Date / Time [id number] Antimigraine Allergy Severe family Verified 08/31/23 08:20 Agents history heart disease codeine Allergy Intermediate Rash Verified 08/31/23 08:20 imitrex AdvReac Intermediate Numbness Uncoded 08/31/23 08:20 [facility] Disclaimer: The information contained in this section may have been updated after the patient was seen, as this information can be updated by other users. Medical History (Updated 01/01/24 @ 00:36 by Lucinda Duarte MD) Menstrual bloating Pelvic pain Dysmenorrhea Abnormal uterine bleeding Migraine headache Mood disorder Attention deficit disorder (ADD) in adult Hypothyroidism Surgical History History of section Family History Other Diabetes Hypertension Thyroid disorder Social History Smoking Status: Never smoker alcohol intake: current alcohol intake frequency: holidays/special occasions only substance use type: denies use current occupational status: employed Travel in the last 8 weeks: None Other Medical History Have you received the Flu Vaccine for this season: Yes Have you received the Pneumonia Vaccine: Yes ROS Obtained: Yes All systems reviewed & no additional complaints except as documented Positive ROS per HPI Constitutional Constitutional: Denies chills, Denies fever(s), Denies headache(s) and Denies weakness Eyes Eyes: Denies change in vision ENT Ears, Nose, Mouth, and Throat: Denies dizziness, Denies headache(s), Denies nasal congestion and Denies sore throat Cardiovascular Cardiovascular: Denies chest pain, Denies dyspnea and Denies leg edema Respiratory Respiratory: Denies cough and Denies dyspnea Gastrointestinal Gastrointestingal: Denies constipation, diarrhea, nausea or vomiting Genitourinary Female Genitourinary: Denies dysuria Musculoskeletal Musculoskeletal: Denies arthralgias, Denies myalgias, Denies numbness and Denies tingling Integumentary/Breasts Skin/Breast: Denies change in pigmentation Neurologic Neurologic: Denies dizziness, Denies headache(s), Denies numbness, Denies tingling and Denies weakness Physical Exam General General appearance: alert Comment: Appears to be in pain and ill but nontoxic, not in extremis Head Head exam: atraumatic and normocephalic Eye Eye exam: Present PERRL and EOMI ENT ENT exam: Present mucous membranes moist Neck Neck exam: Present normal inspection and full ROM Chest Chest inspection: Present symmetric chest wall rise Respiratory Respiratory exam: Absent respiratory distress or stridor Cardiovascular Cardiovascular exam: Present regular rate and normal rhythm Abdominal Exam Abdominal exam: Present soft; Absent distention or tenderness Extremities Exam Extremities exam: Present full ROM Back Exam Back exam: Present CVA tenderness (R); Absent CVA tenderness (L) Neurological Exam Neurological exam: Present alert and oriented X3; Absent motor sensory deficit Psychiatric Psychiatric exam: Present normal affect and normal mood Skin Skin exam: Present warm and dry Medical Decision Making Medical Records Medical records reviewed: Yes I reviewed the patient's medical records. Screening: Per USPSTF and CDC recommendations, given the prevalence of disease in our region, it is our hospital?s policy to screen for HIV and viral Hepatitis for all patients aged 18 and over and those with ongoing risk factors. Solitario Inquiry Pt receiving controlled substance: No Vital Signs: 12/31/23 22:49 12/31/23 23:16 12/31/23 23:47 Temperature 98.5 F Temperature Source Oral Pulse Rate 81 92 H Pulse Rate [Left Radial] 90 Respiratory Rate 20 Blood Pressure 147/79 H 119/68 Blood Pressure [Right Arm] 143/93 H Blood Pressure Mean [Right Arm] 109 Blood Pressure Source [Right Arm] Automatic Cuff Blood Pressure Position [Right Arm] Sitting 02 Sat by Pulse Oximetry 98 99 92 L Oxygen Delivery Method Room Air 01/01/24 00:00 Temperature Temperature Source Pulse Rate 78 Pulse Rate [Left Radial] Respiratory Rate Blood Pressure 126/70 Blood Pressure [Right Arm] Blood Pressure Mean [Right Arm] Blood Pressure Source [Right Arm] Blood Pressure Position [Right Arm] 02 Sat by Pulse Oximetry 96 Oxygen Delivery Method Lab Data Lab Results 12/31/23 23:02: WBC 12.4 H, RBC 4.53, Hgb 12.6, Hct 36.5 L, MCV 80.6 L, MCH 27.7, MCHC 34.4, RDW 16.8, Plt Count 281, MPV 7.8, Neut % (Auto) 70.2, Lymph % (Auto) 20.3, [place] % (Auto) 6.9, Eos % (Auto) 2.0, Baso % (Auto) 0.7, Neut # (Auto) 8.7 H, Lymph # (Auto) 2.5, [place] # (Auto) 0.9, Eos # (Auto) 0.2, Baso # (Auto) 0.1, Sodium 135 L, Potassium 3.4 L, Chloride 103, Carbon Dioxide 23, Anion Gap 12.4, BUN 13, Creatinine 0.90, Estimated GFR 68, Est GFR ( Amer) 83, Glucose 98, Calcium 9.3, Total Bilirubin 0.4, AST 22, ALT 16, Alkaline Phosphatase 60, Total Protein 7.3, Albumin 4.1, Globulin 3.2, Albumin/Globulin Ratio 1.3, Serum HCG, Qual Negative 12/31/23 23:02 12/31/23 23:02 Orders (Tests/Meds): ED MEDICATIONS Generic Name Dose Route Start Last Admin Trade Name Freq PRN Reason Stop Dose Admin Hydromorphone HCl 0.25 mg 01/01/24 00:54 Hydromorphone 2mg/Ml Syringe IV 01/01/24 00:55 ONCE ONE Discontinued Medications Generic Name Dose Route Start Last Admin Trade Name Freq PRN Reason Stop Dose Admin Hydromorphone HCl 0.5 mg 12/31/23 22:59 12/31/23 23:12 Hydromorphone 2mg/Ml Syringe IV 12/31/23 23:00 0.5 mg ONCE ONE Administration Hydromorphone HCl 0.5 mg 12/31/23 23:22 12/31/23 23:34 Hydromorphone 2mg/Ml Syringe IV 12/31/23 23:23 0.5 mg ONCE ONE Administration Lactated Ringer's 1,000 mls @ 999 mls/hr 12/31/23 22:59 12/31/23 23:12 Lactated Ringer's 1000 Ml Bag IV 12/31/23 23:59 999 mls/hr .Q1H1M ONE Administration Ketorolac Tromethamine 15 mg 12/31/23 23:22 12/31/23 23:27 Ketorolac 30mg/Ml Vial IV 12/31/23 23:23 15 mg ONCE ONE Administration Ondansetron HCl 4 mg 12/31/23 23:22 12/31/23 23:34 Ondansetron 4mg/2ml Vial IV 12/31/23 23:23 4 mg ONCE ONE Administration Promethazine HCl 12.5 mg 12/31/23 22:59 12/31/23 23:12 Promethazine Hcl 25mg/Ml 1ml Vial IV 12/31/23 23:00 12.5 mg ONCE ONE Administration Sodium Chloride 25 ml 12/31/23 22:59 12/31/23 23:12 Sodium Chloride 0.9% 25ml Bag IV 12/31/23 23:00 25 ml ONCE ONE Administration ORDERS Category Date Time Status CT abdomen pelvis wo con Stat Cat Scan 12/31/23 22:59 Taken CBC w/Auto Diff [Complete Blood Count Auto Diff] Stat Lab 12/31/23 23:02 Completed CMP [Comprehensive Metabolic Panel] Stat Lab 12/31/23 23:02 Completed HCG Qualitative, Serum Stat Lab 12/31/23 23:02 Completed Urinalysis and Microscopic Stat Lab 12/31/23 22:59 Ordered Medical Decision Narrative: In summary, this 43-year-old female presents to the emergency department today with right flank pain in the setting of known recently diagnosed right ureteral calculus. On initial evaluation patient is hemodynamically stable, afebrile, appears very uncomfortable, has right CVA tenderness, actively dry heaving, remainder of exam benign. Differential diagnosis includes but is not limited to right ureteral calculus, hydronephrosis, hydroureter, urinary tract infection, kidney dysfunction, electrolyte abnormality, among others. Based on these concerns, I ordered serum labs, urinalysis, repeat CT imaging to evaluate if the stone has moved, if she has additional stones, or if she is potentially developed renal abscess though I have very low suspicion for this since patient is nontoxic-appearing. Patient received IV fluids, Dilaudid, Phenergan for treatment. On reassessment patient continued having severe pain and nausea, she received Toradol, Zofran, additional dose of Dilaudid. After receiving these medications her symptoms have improved. Labs personally reviewed demonstrate leukocytosis slightly improved from 2 nights ago, no anemia, CMP does not demonstrate findings of kidney dysfunction, there is trace hyponatremia and hypokalemia, not significantly changed from 2 nights ago, nonactionable at this time, patient has not yet provided urinalysis. Patient did have recurrence of pain, she received an additional 0.25 Dilaudid. Pain controlled at this time. CT abdomen pelvis personally interpreted demonstrates patient's right ureteral stone appears to be more distal but still in the ureter causing upstream hydronephrosis. Radiology read pending. Based on my radiology interpretation, labs, and patient's symptoms, I believe she requires transfer to a center with interventional urology available. She and her requested [place]. [facility] was contacted, I spoke with Dr. Pizano with urology who agreed to follow the patient, I then spoke with nurse practitioner Zeyad with the hospitalist service, we reviewed labs and imaging findings. She excepted the patient for transfer under Dr. Álvarez. Patient requested to go by private vehicle due to recent hospital bills that have encouraged she would really like to avoid an ambulance bill. I explained to her I would not be able to give her additional pain or nausea medication in route if she went by private vehicle where as she would be able to receive these things during EMS transport, but outside of those potential needs, I have low concern for decompensation. I believe patient is appropriate for transfer by private vehicle since she is hemodynamically stable, nontoxic and does not require. I instructed her will be driving her do not make any stops, she should not eat or drink on the way in case she requires a procedure upon arrival, and that they should go directly to [facility] for admission. Patient and her indicated understanding. IV was removed, patient was transferred via private vehicle in stable condition. Critical Care Critical Care Time Critical Care Time: No
[2023-12-31 23:11] LABS: Basophils # 0.1 K/mm3 (0-0.2); Basophils % 0.7 % (0.1-2.0); Eosinophils # 0.2 K/mm3 (0.0-0.4); Hematocrit 36.5 % (37.0-47.0); Hemoglobin 12.6 g/dL (12.2-16.2); Lymphocytes # 2.5 K/mm3 (0.7-4.5); Lymphocytes % 20.3 % (10-50); Mean Corpuscular HGB Conc 34.4 g/dL (31.8-35.4); Mean Corpuscular Hemoglobin 27.7 pg (27.0-31.2); Mean Corpuscular Volume 80.6 fl (81-99); Mean Platelet Volume 7.8 fl (7.4-10.4); Monocytes # 0.9 K/mm3 (0.1-1.0); Monocytes % 6.9 % (1.7-9.3); Neutrophils # 8.7 K/mm3 (1.8-7.8); Neutrophils % 70.2 % (37.0-80.0); Platelet Count 281 K/mm3 (142-424); Red Blood Count 4.53 M/mm3 (4.20-5.40); Red Cell Distribution Width 16.8 % (11.5-17.5); White Blood Count 12.4 K/mm3 (4.8-10.8)
[2023-12-31] MEDS: HYDROMORPHONE 2MG/ML SYRINGE 0.5 MG IV ×2 (23:12→23:34)
[2023-12-31] MEDS: PROMETHAZINE HCL 25MG/ML 1ML VIAL 12.5 MG IV (23:12)
[2023-12-31] MEDS: LACTATED RINGERS 1000ML 1,000 ML 999 ML IV (23:12)
[2023-12-31] MEDS: SODIUM CHLORIDE 0.9% 25ML BAG 25 ML IV (23:12)
[2023-12-31 23:16] VITALS: BP 147/79; PULSE 81; O2SAT 99
[2023-12-31 23:16] LABS: Albumin Level 4.1 g/dl (3.5-5.0); Chloride 103 mmol/L (98-107); Potassium 3.4 mmoL/L (3.5-5.1); Sodium 135 mmol/L (136-145)
[2023-12-31 23:19] LABS: Alanine Aminotransferase 16 U/L (12-78); Albumin/Globulin Ratio 1.3 (1.1-1.8); Alkaline Phosphatase 60 U/L (38-126); Anion Gap 12.4 mEq/L (5-15); Aspartate Amino Transferase 22 U/L (14-36); Bilirubin,Total 0.4 mg/dl (0.2-1.3); Blood Urea Nitrogen 13 mg/dl (7-17); Calcium 9.3 mg/dl (8.4-10.2); Carbon Dioxide 23 mmol/L (22.0-30.0); Estimated Glomerular Filt Rate 68 ml/min (>60); GFR (African American) 83 ML/MIN (>60); Globulin 3.2 g/dL (1.3-3.2); Glucose 98 mg/dl (74-100); Total Protein,Serum 7.3 g/dl (6.3-8.2)
[2023-12-31 23:20] LABS: HCG Qualitative, Serum Negative (Negative)
[2023-12-31] MEDS: KETOROLAC 30MG/ML VIAL 15 MG IV (23:27)
[2023-12-31] MEDS: ONDANSETRON 4MG/2ML VIAL 4 MG IV (23:34)
[2023-12-31 23:47] VITALS: BP 119/68; PULSE 92; O2SAT 92
[2024-01-01] VITALS: BP 126/70; PULSE 78; O2SAT 96
--- NOTE | 2024-01-01 00:31 | PC.NURSE ---
rounded on pt at this time. pt reports pain is much better. voices no needs at this time. call light in reach
--- NOTE | 2024-01-01 00:59 | PC.NURSE ---
Gave report to Chica ANGELES at [facility]. pt being transferred to med surg bed 115. pt is going POV
[2024-01-01] MEDS: HYDROMORPHONE 2MG/ML SYRINGE 0.25 MG IV (01:07)
[2024-01-01 01:11] LABS: Appearance,Urine CLEAR (Clear); Bilirubin,Urine Negative (Negative); Blood, Urine 2+ (Negative); Color,Urine YELLOW (Yellow); Glucose,Urine (UA) Negative (Negative); Ketones,Urine Negative (Negative); Leukocyte Esterase,Urine TRACE (Negative); Microscopic, Urine URINE MICROSCOPIC (MICROSCOPIC); Nitrate,Urine Negative (Negative); PH,Urine 6.5 (5.0-8.5); Protein,Urine Negative (Negative); Urobilinogen,Urine 0.2 EU/dl (0.2)
[2024-01-01 01:14] VITALS: BP 116/66; PULSE 64; RESP 16; TEMP 36.8; O2SAT 98
--- NOTE | 2024-01-01 01:16 | PC.NURSE ---
IV DC'd at time of transfer.
[2024-01-01 01:27] LABS: Bacteria,Urine 1+ /lpf
== END 2024-01-01 01:19 | disposition short-term general hospital (02) ==
PROVIDERS: Emergency Medicine; Emergency Provider Student in an Organized Health Care Education/Training Program; PCP Physician Assistant
DX: N20.1 Calculus of ureter (principal); N13.30 Unspecified hydronephrosis; R10.9 Unspecified abdominal pain; R39.12 Poor urinary stream; R11.2 Nausea with vomiting, unspecified
CPT/HCPCS: 74176; 80053; 81001; 84703; 85025; 96361; 96374; 96375; 99284; J1171; J1885; J2405; J2550; J7120

== ENCOUNTER 2024-01-14 14:58 | Outpatient (CLI) | payer BC, SELFPAY ==
--- NOTE | 2024-01-14 14:59 | MM_ITS ---
PROCEDURE INFORMATION: Exam: MG Bilateral Screening 3D Mammography Exam date and time: 01/14/2024 2:55 PM Age: 43 years old Clinical indication: Screening examination. TECHNIQUE: Imaging protocol: Bilateral Screening tomosynthesis and 2D mammography including computer-aided detection (CAD) when performed. COMPARISON: 1. MG MM DIG SCREENING MAMM BI W/CAD 07/11/2022 2:50 PM 2. MG MM DIG SCREENING MAMM BI W/CAD 03/04/2021 8:00 AM FINDINGS: MAMMOGRAPHY: Breast composition: There are scattered areas of fibroglandular density. Mass: None. Architectural distortion: None. Calcifications: No suspicious calcifications. Asymmetric density: None. Skin thickening: None. Axillary adenopathy: None. IMPRESSION: No mammographic evidence of malignancy. Annual screening is recommended unless otherwise clinically indicated. ASSESSMENT: BI-RADS Category 1: Negative.
== END 2024-01-14 23:59 | disposition home or self-care (01) ==
LOC: RAD 14:59
PROVIDERS: PCP Physician Assistant; Visit Provider Obstetrics & Gynecology
DX: Z12.31 Encounter for screening mammogram for malignant neoplasm of breast (principal)
CPT/HCPCS: 77063; 77067

== ENCOUNTER 2024-04-04 10:07 | Outpatient (CLI) | payer BC, SELFPAY | END 2024-04-04 23:59 | disposition home or self-care (01) | LOC: LAB.DROPOF 04-05 13:46 | PROVIDERS: PCP Student in an Organized Health Care Education/Training Program; Visit Provider Student in an Organized Health Care Education/Training Program | DX: J02.9 Acute pharyngitis, unspecified (principal) | CPT/HCPCS: 87070 ==

== ENCOUNTER 2025-01-10 08:58 | Outpatient (CLI) | payer BC, SELFPAY ==
--- NOTE | 2025-01-10 09:01 | XR_ITS ---
FINAL REPORT CLINICAL HISTORY: chest congestion COMPARISON: 07/05/2021 FINDINGS: There is evidence of old calcified granulomatous disease. No acute pulmonary density is evident. There is no evidence of effusion or other pleural disease. The mediastinum has a normal appearance. The cardiac silhouette is unremarkable. IMPRESSION: No acute process. Reviewed, Interpreted and Dictated by Joyce Ram MD Transcribed by Rayna Anne Authenticated and [facility]
--- OUTSIDE RECORDS SUMMARY | 2025-01-10 09:24 | XMS_ITS | Clinical Summary ---
Author Organization [facility] Address [address] [facility] [address] [facility] [place] [address] Phone Care Team Providers Care Mayonnaise Mixer Name Role Phone Claudio Dumont MD Primary Care Provider + Allergies Active Allergy Reactions Criticality Noted Date Comments Codeine Phosphate Rash 07/12/2010 Morphine And Related 05/29/2003 rash Medications IBUPROFEN TABS 600 MG OR 1 TABLET 3 TIMES DAILY 90 0 0 Active AMOXICILLIN 500 MG OR CAPS 1 CAPSULE EVERY 8 HOURS FOR INFECTION 30 0 4 Active PSEUDOEPHEDRINE -GUAIFENESIN CR 120-600 MG OR TB12 1 TABLET EVERY 12 HOURS NEEDED 20 1 4 Active ALBUTEROL 90 MCG/ACT IN AERS 2 PUFFS FOUR TIMES DAILY, NEEDED 1 1 5 Active PCE 333 MG OR TBEC 1 TABLET EVERY 8 HOURS 42 0 5 Active ANUSOL-HC CREA 2.5 % EX apply twice daily 30g 1 6 Active Diaper Rash Products (DESITIN) OINT Apply topically. Active levothyroxine (SYNTHROID, LEVOTHROID) 50 MCG TABS Take 50 mcg by mouth daily. Active ferrous sulfate 325 (65 FE) MG TABS Take 325 mg by mouth daily with breakfast. Active Active Problems No known active problems Family History Medical History Relation Name Comments Diabetes Father Heart Disease Father High Cholesterol Father Cancer Maternal Grandmother uterine Heart Disease Mother Thyroid Disease Mother Cancer Paternal Grandmother Blood Disorder Neg Hx Stroke Neg Hx Relation Name Status Comments Daughter 1 Alive Daughter 2 Alive Daughter 3 Alive Father Alive Maternal Grandmother Mother Alive Paternal Grandmother Son 1 Alive Son 2 Alive adopted Social History Tobacco Use Types Packs/Day Years Used Date Smoking Tobacco: Never Smokeless Tobacco: Never Alcohol Use Standard Drinks/Week Comments No 0 (1 standard drink = 0.6 oz pur e alcohol) Comments No Sex and Gender Information Value Date Recorded Sex Assigned at Not on file Legal Sex Female 11:16 PM EDT Gender Identity Not on file Sexual Orientation Not on file 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 Not on file Not on file Last Filed Vital Signs Vital Sign Reading Time Taken Comments Blood Pressure 110/70 09/06/2011 10:12 AM EDT Pulse 72 07/12/2010 5:04 PM EDT Temperature 36.5 C (97.7 F) 07/12/2010 5:04 PM EDT Respiratory Rate - - Oxygen Saturation 98% 07/08/2004 6:45 PM EDT Inhaled Oxygen Concentration - - Weight 80.3 kg (177 lb) 09/06/2011 10:12 AM EDT Height 167.6 cm (5' 6 ) 09/06/2011 10:12 AM EDT Body Mass Index 28.57 09/06/2011 10:12 AM EDT Plan of Treatment Health Maintenance Due Date Last Done Comments DTap,Tdap,and Td (1 - Tdap) 11/08/1991 HPV (1 - 3-dose SCDM series) 11/08/2007 Pap Screening 09/05/2014 09/06/2011, 10/21, 10/17/2002, Additional history exists Mammogram Screening 2020 Influenza Vaccine (#1) 2024 RSV Vaccine (60+ or ) (1 - 1-dose 75+ series) 11/08/2055 Meningococcal conjugate valent 4 (MCV4) Aged Out No longer eligible based on patient's age to complete this topic Pneumococcal 0-49 Aged Out No longer eligible based on patient's age to complete this topic RSV Immunization (<20 months) Aged Out No longer eligible based on patient's age to complete this topic Procedures Procedure Name Priority Date/Time Associated Diagnosis Comments CYTOPATHOLOGY, THIN PREP Routine 09/06/2011 11:07 AM EDT Routine gynecological examination from Last 3 Months or Most Recently Relevant to Health Maintenance Results * CYTOPATHOLOGY, THIN PREP (09/06/2011 11:07 AM EDT) 09/06/2011 11:0 7 AM EDT 09/08/2011 10:25 AM EDT [facility] - 09/12/2011 2:29 PM EDT [id number] [place]: 09/06/2011 00:00 REC: 09/08/2011 10:25 PHYS: LEONEL MINA JR, MD CYTOLOGY GYNECOLOGICAL REPORT Name: PHYLLIS ESPINOTRENA Gerard EPI#: [id number] Case #: [id number] Final Cytologic Diagnosis A. Cervical/Endocervical thinprep pap: Adequacy: Satisfactory for evaluation, endocervical transformation zone component present. Interpretation: Negative for intraepithelial lesion or malignancy. This specimen has been analyzed by the ThinPrep Imaging System ([employer] an automated imaging and review system, which assists the senior database administrator and/or pathologist in evaluation of cells on Thinprep Pap tests. Electronically Signed Out By Misti TORRES([facility]) Source of Specimen(s) A: Cervical/Endocervical thinprep pap Clinical History Date of Last Menstrual Period: 08/18/11 Signed out at [facility], [address] [place] [address] [facility] Non-Formatted Report [id number] REMINGTON: 09/06/2011 00:00 REC: 09/08/2011 10:25 PHYS: LEONEL MINA JR, MD CYTOLOGY GYNECOLOGICAL REPORT Name: INDIA ESPINO EPI#: [id number] Case #: [id number] Procedure\Addenda HPV High Risk Date Ordered: 09/10/2011 Status: Signed Out Date Complete: 09/12/2011 By: Rosa Bridges Date Reported: 09/12/2011 Interpretation NEGATIVE (Reference Range: Negative) The Cervista HPV HR test is an in vitro test for the qualitative detection of DNA from 14 high-risk Human Papillomavirus (HPV) types (16, 18, 31, 33, 35, 39, 45, 51, 52, 56, 58, 59, 66, and 68) in cervical specimens. The Cervista HPV HR test is indicated: 1) To screen patients with atypical squamous cells of undetermined significance (ASC-US) cervical cytology results to determine the need for referral to colposcopy. 2) In women 30 years and older the test can be used with cervical cytology to adjunctively screen to assess the presence or absence of high-risk HPV types. The Cervista HPV HR test is not intended for use as a screening device for women under age 30 with normal cytology. Results should be used in conjunction with clinical information and assessment of cytology and other factors according to appropriate professional guidelines. False negative results may be related to early low level infections or contamination with high concentration of contraceptive jelly and/or anti-fungal creams. HPV testing performed at [facility], [address] [place], [place] [id number]. Final Cytologic Diagnosis A. Cervical/Endocervical thinprep pap: Adequacy: Satisfactory for evaluation, endocervical transformation zone component present. Interpretation: Negative for intraepithelial lesion or malignancy. This specimen has been analyzed by the ThinPrep Imaging System ([employer] an automated imaging and review system, which assists the senior database administrator and/or pathologist in evaluation of cells on Thinprep Pap tests. Electronically Signed Out By Misti TORRES([facility]) Source of Specimen(s) A: Cervical/Endocervical thinprep pap Clinical History Date of Last Menstrual Period: 08/18/11 Signed out at [facility], [address] [place] [id number] [facility] [employer] Non-Formatted Report us Leonel Mina Jr., MD PATHOLOGY/CYTOLOGY [place] [address] from Last 3 Months or Most Recently Relevant to Health Maintenance Insurance [employer] [place] [phone] [employer] NOT [employer] Care Teams Mayonnaise Mixer Relationship Specialty Start Date End Date Claudio Dumont MD PCP - General 07/12/10
--- OUTSIDE RECORDS SUMMARY | 2025-01-10 09:25 | XMS_ITS ---
Author Organization Unknown ENCOUNTERS Encounter Performer Location Date Diagnosis Diagnosis Status Pre Admit [facility] [address] [facility] [address] [place] [phone] Emergency [place] [id number] [facility] [address] [place] [id number] XSTH Pre Admit [facility] [address] [facility] [address] [place] [id number] Emergency [place] [id number] [facility] [address] [place] [address] [id number] AMILCAR Pre Admit [facility] [address] [facility] [address] [place] [address] [id number] Emergency [place] [id number] [facility] [address] [place] [address] [id number] XSTH Emergency [facility] [address] [facility] [address] [place] [address] [id number] AMILCAR Emergency [facility] [address] [place] [address] [id number] AMILCAR Emergency [facility] [address] [facility] [address] [place] [address] [id number] AMILCAR Emergency [facility] [address] [facility] [address] [place] [address] [id number] AMILCAR Emergency [facility] [place] [facility] [address] [facility] [address] [place] [address] [id number] AMILCAR *Note: Encounters from your own facility or health system may be excluded. Allergies, Adverse Reactions, Alerts Allergen Type Severity Identification Date codeine drug allergy 3 [id number] Antimigraine Agents drug allergy 4 [id number] Medications Name Date Quantity Days Supplied GPI Number
== END 2025-01-10 23:59 | disposition home or self-care (01) ==
LOC: RAD 08:59
PROVIDERS: PCP Physician Assistant; Visit Provider Nurse Practitioner
DX: R09.89 Other specified symptoms and signs involving the circulatory and respiratory systems (principal)
CPT/HCPCS: 71046

== ENCOUNTER 2025-03-07 13:44 | Outpatient (CLI) | payer BC, SELFPAY ==
--- OUTSIDE RECORDS SUMMARY | 2024-08-10 09:45 | XMS_ITS ---
[facility] [address] [id number] Care Team Providers [employer] Name Role Phone Trent Bunch Primary Care Provider Teresita Almeida Unavailable [phone] Allergies Allergen (clinical drug ingredient) Drug/Non Drug Allergy documented on EMR Reaction Allergy Type Onset Date Status codeine Codeine Unknown Drug Allergy Active REASON FOR VISIT check up Medications Medication SIG (Take, Route, Fr equency, Duration) Notes Start Date End Date Status Linzess 145 MCG 1 capsule at least 3 0 minutes before the first meal of the day on an empty stomach Orally Once a day; Duration: 90 days 08/10/2024 Ac tive Ubrelvy 100 MG 1 tablet as needed, may take second dose at least 2 hours after first dose up to 2 tablets per day as needed Orally Once a day; Duration: 30 days 08/10/2024 Active hydrOXYzine HCl 25 MG 1-2 tablets as nee ded Orally Once a day at night 08/10/2024 Active Problems Problem Type SNOMED Code ICD Code Onset Dates Problem Status W/U Status Risk Notes Problem Refractory migraine (789948992) Intractable migraine without status migrainosus, unspecified migraine type (G43.919) Active confirmed Problem Insomnia (827777494) Insomnia, unspecified type (G47.00) Active confirmed Problem Obese class II ([id number] 5) BMI 38.0-38.9,adult (Z68.38) Active confirmed Vital Signs Weight 196.2 lbs 08/10/2024 Blood pressure systolic 124 mm Hg 08/11/19 25 Blood pressure diastolic 78 mm Hg 025 Heart Rate 81 /min 08/10/2024 Height 60 in 08/10/2024 BMI 38.31 kg/m2 08/10/2024 Encounters Encounter Location Date Provider Diagnosis Jet [address] [facility] [address] [place] [id number] 08/10/2024 Teresita Almeida Intractable migraine without status migrainosus, unspecified migraine type G43.919 ; Thyroid nodule E04.1 ; Lipid screening Z13.220 ; Non-recurrent acute serous otitis media of right ear H65.01 ; Chronic constipation K59.09 ; Insomnia, unspecified type G47.00 and BMI 38.0-38.9,adult Z68.38 Assessments Encounter Date Diagnosis (ICD Code) Assessment Notes Treatment Notes Treatment Clinical Notes Section Notes 08/10/2024 Intractable migraine without status migrainosus, unspecified migraine type (ICD-10 - G43.919) 08/10/2024 Thyroid nodule (ICD-10 - E04.1) 08/10/2024 Lipid screening (ICD-10 - Z13.220) 08/10/2024 Non-recurrent acute serous otitis media of right ear (ICD-10 - H65.01) 08/10/2024 Chronic constipation (ICD-10 - K59.09) 08/10/2024 Insomnia, unspecified type (ICD-10 - G47.00) 08/10/2024 BMI 38.0-38.9,adult (ICD-10 - Z68.38) 08/10/2024 Other Will come back tomorrow for fasting labs CBC, CMP, LIpid, TSH, Free T4 Plan Of Treatment Medication Medication Name Sig Start Date Stop Date Notes Linzess 145 MCG 1 capsule at least 3 0 minutes before the first meal of the day on an empty stomach Orally Once a day; Duration: 90 days 08/10/2024 Ubrelvy 100 MG 1 tablet as needed, may take second dose at least 2 hours after first dose up to 2 tablets per day as needed Orally Once a day; Duration: 30 days 08/10/2024 hydrOXYzine HCl 25 MG 1-2 tablets as nee ded Orally Once a day at night 08/10/2024 Treatment Notes Assessment Notes Other Will come back tomor row for fasting labs CBC, CMP, LIpid, TSH, Free T4 Pending Test Test Name Order Date xultrasound : thyroid 08/10/2024 Next Appt Details Follow Up: via phone to repo rt test results, Reason: Progress Notes * JEANNA ESPINODOB: [birth year] (44 yo F)Acc No.[id number]:08/10/2024 Progress Notes Patient: JEANNA PLATA Provider: MARY Slater :1980 A ge:43 Y S ex:Female Date:08/10/2024 Address:[address] [place] [address], [id number] Pcp:Trent Bunch Subjective: * Chief Complaints: * 1 . Check up. * HPI: E ndocrinology: 43 year old female presents with c/o Maintenance P t presents today for a check-up and possibly restart of medications. Pt sts that she is due for labs and sts that she has not had an ultrasound in a while to check on her thyroid either. N eurology: c/o headache P t would like to discuss starting back on Ubrelvy. Pt sts that insurance typically wants her to start a triptan, but she has had issues in the past when on Sumatriptan. E NT/respiratory: ringing in ear P t sts that she has not really had a ringing in the ear but has a random thumping in her right ear. * ROS: C ARDIOLOGY: no D izziness. n o C hest pain. n o P alpitations. D ERMATOLOGY: no R sharri. n o H williams. U ROLOGY: no D ifficulty urinating. n o B lood in urine. * Medical History: H ypothyroidism. * Surgical History: C section x 5 , Ureoscopy 2023. * Family History: F ather: , diagnosed with Heart Disease, Diabetes, Hypertension. M other: . 2 son(s) , 4 daughter(s) - healthy. . Mother passed from heart attack. * Social History: C URRENT TOBACCO USE: No . C affeine: yes, frequency: soft drinks, coffee, daily. Home smoke detector use: yes. Alcohol: Yes, Type: , Frequency: ,Years: , Determination:, occasional. * Medications: N one * Allergies: C odeine. Objective: * Vitals: W t: 196.2, Temp: 97.9, BP: 124/78, HR: 81, Nurse: MIKEY, Ht: 60, BMI:38.31. * Examination: G eneral Examination: General Appearance: N AD. H EENT: r ight TM with effusion, no erythema, left TM normal. O ral cavity: n o lesions, mucosa moist and WNL, no erythema. N lizzy: s upple, no lymphadenopathy. C hest: n ormal shape and expansion. Heart: R SR. L ungs: c lear to auscultation. A bdomen: b owel sounds present , soft and nontender , no organomegaly or masses , no guarding or rigidity. N eurologic Exam:?Intact, gait normal. S kin: n ormal, no rash. P eripheral pulses: n ormal (2+) bilaterally. E xtremities: n o leg edema. Assessment: * Assessment: 1. I ntractable migraine without status migrainosus, unspecified migraine type - G43.919 (Primary) 2 . T hyroid nodule - E04.1 3 . L ipid screening - Z13.220 4 . N on-recurrent acute serous otitis media of right ear - H65.01 5 . C hronic constipation - K59.09 6 . I nsomnia, unspecified type - G47.00 7 . B ND 38.0-38.9,adult - Z68.38 Plan: * Treatment: 2. T hyroid nodule I maging: xultrasound : thyroid 3.?Chronic constipation? Start Linzess Capsule, 145 MCG, 1 capsule at least 30 minutes before the first meal of the day on an empty stomach, Orally, Once a day, 90 days, 90, Refills 3.??4.?Insomnia, unspecified type? Start hydrOXYzine HCl Tablet, 25 MG, 1-2 tablets as needed, Orally, Once a day at night, 60, Refills 2.??5.?Others? Notes: Will come back tomorrow for fasting labs CBC, CMP, LIpid, TSH, Free T4?? * Procedure Codes: 3 074F SYST BP LT 130 MM HG, 3078F DIAST BP < 80 MM HG * Follow Up: v ia phone to report test results * Images: Billing Information: * Visit Code: 64345 Office Visit, Est Pt., Level 4. * Procedure Codes: 3074F SYST BP LT 130 MM HG. 3078F DIAST BP < 80 MM HG. * Electronic signature of MARY Corrigan on 03/07/2025 at 01:48 PM EST Sign off status: Pending * Provider: MARY Slater Date: 0 08/10/2024 Generated for Printi ng/Faxing/eTransmitting on: 1 05/08/2024 01:48 PM EST History and Physical Notes * HPI (History of Present Illness) Category Sub-Category Detail Notes Category Not es ENT/respiratory ringing in ear Pt sts that she has not really had a ringing in the ear but has a random thumping in her right ear Neurology headache Pt would like to discuss starting back on Ubrelvy. Pt sts that insurance typically wants her to start a triptan, but she has had issues in the past when on Sumatriptan Endocrinology Maintenance Pt presents toda y for a check-up and possibly restart of medications. Pt sts that she is due for labs and sts that she has not had an ultrasound in a while to check on her thyroid either Examination Category Sub-Category Detail Notes Category Not es General Examination HEENT: right TM wit h effusion, no erythema, left TM normal Heart: RSR Lungs: clear to auscultatio n Abdomen: bowel sounds present , soft and nontender , no organomegaly or masses , no guarding or rigidity Extremities: no leg edema General Appearance: NAD Skin: normal, no rash Neurologic Exam: Intact, gait normal Neck: supple, no lymphaden opathy Oral cavity: no lesions, mucosa m oist and WNL, no erythema Peripheral pulses: normal (2+) bilatera lly Chest: normal shape and exp ansion
--- OUTSIDE RECORDS SUMMARY | 2024-08-12 03:30 | XMS_ITS ---
Author Organization [facility] Address [address] [place] [id number] Care Team Providers Care Wellness Director Name Role Phone Trent Bunch Primary Care Provider [phone] YayaTeresita mac Unavailable [phone] Results Component Value Reference Range Notes CBC Fingerstick (in house) Reviewed date:08/17/2024 03:43:07 PM Interpretation:Normal Performing Lab: Notes/Report: Normal wbc 7.7 3.5 - 10 lym 21.9 15 - 50 mid 5.3 2 - 15 gran 72.8 35 - 80 rbc 4.73 3.5 - 5.5 hgb 12.4 11.5 - 16.5 hct 37.3 35 - 55 mcv 78.9 75 - 100 mch 26.3 25 - 35 mchc 33.3 31 - 38 plat 324 100 - 400 P-Comprehensive Metabolic Pa juan antonio (CMP) Reviewed date:08/17/2024 03:43:07 PM Interpretation:Normal Performing Lab: Notes/Report: Test performed by [facility] [address] [place] [address] , [address], [place] [address] Marciano Vines MD, Gericare Aide CLIA: [id number] Sodium 140 135-145 mmol/L Potassium 4.6 3.5-5.3 mmol/L Chloride 106 97-108 mmol/L CO2 22 22-32 mmol/L Glucose 86 65-99 mg/dL BUN 11 6-20 mg/dL Creatinine 0.88 0.50-1.00 mg/dL Calcium 9.5 8.6-10.4 mg/dL eGFR by Creatinine 83 >59 mL/min/1.73m2 Protein 7.0 6.0-8.3 g/dL Albumin 4.2 3.5-5.3 g/dL Alkaline Phosphatase 90 35-121 IU/L ALT (SGPT) 11 <5-47 IU/L AST (SGOT) 12 <5-40 IU/L Bilirubin, Total 0.3 <0.2-1.2 mg/dL A/G Ratio 1.5 1.1-2.5 P-T4 Free (thyroxine) Reviewed date:08/17/2024 03:43:07 PM Interpretation:Normal Performing Lab: Notes/Report: Test performed by [facility] [address] [place] [address] , [place] [address] Marciano Vines MD, Gericare Aide CLIA: [id number] Thyroxine Free (free T4) 1.11 0.86-1.76 ng/dL P-Lipid Panel Reviewed date:08/17/2024 03:43:07 PM Interpretation:chol/hdl 4.59, non-hdl 147, ldl 133 Performing Lab: Notes/Report: Test performed by [facility] [address] [place] [address] , [address], [place] [address] Marciano Vines MD, Gericare Aide CLIA: [id number] Cholesterol 188 <200 mg/dL Triglycerides 72 <150 mg/dL HDL Cholesterol 41 >39 mg/dL Cholesterol / HDL Ratio 4.59 0.00-4.44 Ratio Non-HDL Cholesterol 147 <130 mg/dL LDL Cholesterol (Calculation) 133 <130 mg/dL LDL Cholesterol Levels* Less than 100 mg/dL Optimal 100 to 129 mg/dL Near Optimal/ Above Optimal 130 to 159 mg/dL Borderline High 160 to 189 mg/dL High 190 mg/dL and above Very High * Categories as recommended by the 2004 ATPIII guidelines LDL/HDL Ratio 3.2 <3.3 Ratio LDL Cholesterol Patient History Test Date: 08/12/2024 LDL Results: 133 Units: mg/dL % Change: - P-TSH Reviewed date:08/17/2024 03:43:07 PM Interpretation:Normal Performing Lab: Notes/Report: Test performed by [facility] [address] [place] [address] , [address], [place] [address] Marciano Vines MD, Gericare Aide CLIA: [id number] TSH 1.95 0.43-5.25 mU/L REASON FOR VISIT blood work Encounters Encounter Location Date Provider Diagnosis [facility] [address] [facility] [address] [place] [id number] 08/12/2024 Teresita Almeida Acquired hypothyroid ism E03.9 and Lipid screening Z13.220 Assessments Encounter Date Diagnosis (ICD Code) Assessment Notes Treatment Notes Treatment Clinical Notes Section Notes 08/12/2024 Acquired hypothyroidism (ICD-10 - E03.9) 08/12/2024 Lipid screening (ICD-10 - Z13.220) Plan Of Treatment No Information Progress Notes * JEANNA ESPINODOB: [birth year] (44 yo F)Acc No.[id number]:08/12/2024 Patient: JEANNA PLATA Provider: MARY Slater :1980 A ge:43 Y S ex:Female Date:08/12/2024 Address:[address] [place], [place] [id number] Pcp:Trent Bunch Subjective: * Chief Complaints: * 1 . Blood work. * Medical History: Objective: * Vitals: Assessment: * Assessment: 1. L ipid screening - Z13.220 2 . A cquired hypothyroidism - E03.9 ? Plan: * Treatment: Value Reference Range A /G Ratio 1.5 1.1-2.5 - * A lbumin 4.2 3.5-5.3 - g/dL * A lkaline Phosphatase 90 35-121 - IU/L * A LT (SGPT) 11 <5-47 - IU/L * A ST (SGOT) 12 <5-40 - IU/L * B ilirubin, Total 0.3 <0.2-1.2 - mg/dL * B UN 11 6-20 - mg/dL * C alcium 9.5 8.6-10.4 - mg/dL * C hloride 106 97-108 - mmol/L * C O2 22 22-32 - mmol/L * C reatinine 0.88 0.50-1.00 - mg/dL * G lucose 86 65-99 - mg/dL * P otassium 4.6 3.5-5.3 - mmol/L * S odium 140 135-145 - mmol/L * P rotein 7.0 6.0-8.3 - g/dL * e GFR by Creatinine 83 >59 - mL/min/1.73m2 * Deanna Ambrosio 08/17/2024 03: 42:59 PM > See phone encounter ?LAB: P-Lipid Panel (Collection Date & Time - 08/12/2024 08:04 AM)?chol/hdl 4.59, non-hdl 147, ldl 133* Value Reference Range C holesterol / HDL Ratio 4.59 H 0.00-4.44 - Ratio * C holesterol 188 <200 - mg/dL * H DL Cholesterol 41 >39 - mg/dL * L DL Cholesterol (Calculation) 133 H <130 - mg/d L * L DL/HDL Ratio 3.2 <3.3 - Ratio * N on-HDL Cholesterol 147 H <130 - mg/dL * T riglycerides 72 <150 - mg/dL * Deanna Ambrosio 08/17/2024 03: 42:59 PM > See phone encounter 2.?Acquired hypothyroidism?LAB: P-Comprehensive Metabolic Panel (CMP) (Collection Date & Time - 08/12/2024 08:04 AM)?Normal* Value Reference Range A /G Ratio 1.5 1.1-2.5 - * A lbumin 4.2 3.5-5.3 - g/dL * A lkaline Phosphatase 90 35-121 - IU/L * A LT (SGPT) 11 <5-47 - IU/L * A ST (SGOT) 12 <5-40 - IU/L * B ilirubin, Total 0.3 <0.2-1.2 - mg/dL * B UN 11 6-20 - mg/dL * C alcium 9.5 8.6-10.4 - mg/dL * C hloride 106 97-108 - mmol/L * C O2 22 22-32 - mmol/L * C reatinine 0.88 0.50-1.00 - mg/dL * G lucose 86 65-99 - mg/dL * P otassium 4.6 3.5-5.3 - mmol/L * S odium 140 135-145 - mmol/L * P rotein 7.0 6.0-8.3 - g/dL * e GFR by Creatinine 83 >59 - mL/min/1.73m2 * Deanna Ambrosio 08/17/2024 03: 42:59 PM > See phone encounter ?LAB: P-T4 Free (thyroxine) (Collection Date & Time - 08/12/2024 08:04 AM)? Normal* Value Reference Range T hyroxine Free (free T4) 1.11 0.86-1.76 - ng/d L * Deanna Ambrosio 08/17/2024 03: 42:59 PM > See phone encounter ?LAB: P-TSH (Collection Date & Time - 08/12/2024 08:04 AM)?Normal* Value Reference Range T SH 1.95 0.43-5.25 - mU/L * Deanna Ambrosio 08/17/2024 03: 42:59 PM > See phone encounter * Labs: * L ab: CBC Fingerstick (in house) (Collection Date & Time - 08/12/2024) N ormal Value Reference Range w bc 7.7 3.5 - 10 * l ym 21.9 15 - 50 * m id 5.3 2 - 15 * g ran 72.8 35 - 80 * r bc 4.73 3.5 - 5.5 * h gb 12.4 11.5 - 16.5 * h ct 37.3 35 - 55 * m cv 78.9 75 - 100 * m ch 26.3 25 - 35 * m chc 33.3 31 - 38 * p lat 324 100 - 400 * Diana Blackmon 08/12/2024 09:5 7:41 AM > Deanna Ambrosio 08/17/2024 03:42:59 PM > See phone encounter * Procedure Codes: 8 5025 CBC WITH AUTO DIFF * Images: Billing Information: * Visit Code: * Procedure Codes: 70240 CBC WITH AUTO DIFF. * Electronic signature of MARY Corrigan on 03/07/2025 at 01:48 PM EST Sign off status: Pending * Provider: MARY Slater Date: 0 08/12/2024 Generated for Rona olmstead/Cynthia/Robertitting on: 1 05/08/2024 01:48 PM EST
--- OUTSIDE RECORDS SUMMARY | 2024-11-17 04:15 | XMS_ITS ---
Author Organization [facility] Address [address] [facility] [facility] [address] [place] [id number] Care Team Providers Care Claims Examiner Name Role Phone Trent Bunch Primary Care Provider Teresita [place]meida [phone] Allergies Allergen (clinical drug ingredient) Drug/Non Drug Allergy documented on EMR Reaction Allergy Type Onset Date Status codeine Codeine Unknown Drug Allergy Active REASON FOR VISIT 3 Month Check Up w/ Labs Encounters Encounter Location Date Provider Diagnosis [facility] [address] [facility] [address] [place] [id number] 11/17/2024 Teresita Almeida Plan Of Treatment No Information Progress Notes * JEANNA ESPINODOB: [birth year] (44 yo F)Acc No.[id number]:11/17/2024 Progress Notes Patient: JEANNA PLATA Provider: MARY Slater :1980 A ge:44 Y S ex:Female Date:11/17/2024 Address:[id number] Pcp:Trent Bunch Subjective: * Chief Complaints: * 1 . 3 Month Check Up w/ Labs. * HPI: H PI: Patient is here today for 3 month checkup and labs. Pt states she is doing good with no new concerns today. Pt is fasting. * ROS: D ERMATOLOGY: no R sharri. n o H williams. G ASTROENTEROLOGY: no N ausea. n o V omiting. n o D iarrhea.? U ROLOGY: no D ifficulty urinating. n o B lood in urine. * Medical History: H ypothyroidism. * Surgical History: C section x 5 , Ureoscopy 2023. * Family History: F ather: , diagnosed with Hypertension, Diabetes, Heart Disease. M other: . 2 son(s) , 4 daughter(s) - healthy. . Mother passed from heart attack. * Social History: C URRENT TOBACCO USE: No . C affeine: yes, frequency: soft drinks, coffee, daily. Home smoke detector use: yes. Alcohol: Yes, Type: , Frequency: ,Years: , Determination:, occasional. * Allergies: C odeine. Objective: * Vitals: Assessment: Plan: * Treatment: * Images: Billing Information: * Visit Code: * Procedure Codes: * Electronic signature of MARY Corrigan on 03/07/2025 at 01:47 PM EST Sign off status: Pending * Provider: MARY Slater Date: 0 11/17/2024 Generated for Rona olmstead/Cynthia/Robertitting on: 1 05/08/2024 01:47 PM EST History and Physical Notes * HPI (History of Present Illness) Category Sub-Category Detail Notes Category Not es HPI Patient is here today for 3 mary h checkup and labs. Pt states she is doing good with no new concerns today. Pt is fasting
--- OUTSIDE RECORDS SUMMARY | 2024-12-07 05:15 | XMS_ITS ---
Author Organization [facility] Address [address] [place] [id number] Care Team Providers Care Steam Clothes Press Operator Name Role Phone Trent Bunch Primary Care Provider Terseita [place]meida [phone] Allergies Allergen (clinical drug ingredient) Drug/Non Drug Allergy documented on EMR Reaction Allergy Type Onset Date Status codeine Codeine Unknown Drug Allergy Active REASON FOR VISIT hormones, emotional, raging, lab work Encounters Encounter Location Date Provider Diagnosis [facility] [address] [place] [phone] 12/07/2024 Teresita Almeida Plan Of Treatment No Information Progress Notes * JEANNA ESPINODOB: [birth year] (44 yo F)Acc No.[id number]:12/07/2024 Progress Notes Patient: JEANNA PLATA Provider: MARY Slater :1980 A ge:44 Y S ex:Female Date:12/07/2024 Address:[place] Pcp:Trent Bunch Subjective: * Chief Complaints: * 1 . Hormones, emotional, raging, lab work. * HPI: H PI: 44 year old female presents with c/o Patient is here today for?Pt is here today with c/o feeling emotional and having ragae. Pt believes it is hormone related and requests labs today. * ROS: D ERMATOLOGY: no R sharri. [...] Pending * Provider: MARY Slater Date: 0 12/07/2024 Generated for Rona olmstead/Cynthia/Cathysmitting on: 1 05/08/2024 01:48 PM EST History and Physical Notes * HPI (History of Present Illness) Category Sub-Category Detail Notes Category Not es HPI Patient is here today for Pt is here today with c/o feeling emotional and having ragae. Pt believes it is hormone related and requests labs today
--- NOTE | 2025-03-07 13:45 | US_ITS ---
FINAL REPORT TECHNIQUE: Real-time grayscale and color ultrasound of the thyroid was performed. CLINICAL HISTORY: 1 year f/u on nodules COMPARISON: none FINDINGS: The thyroid gland measures 43 x 20 x 16 mm on the right and 35 x 14 x 17 mm on the left. The isthmus measures 4 mm. There is a 15 mm ovoid isoechoic TR 3 nodule inferior right lobe of the thyroid. There is also a 4 mm hyperechoic TR 3 nodule in the upper left lobe. IMPRESSION: Thyroid nodules as above. Continued 12-month follow-up recommended per TI-RADS criteria. Reviewed, Interpreted and Dictated by Joyce Ram MD Transcribed by Tracy Leslie Authenticated and [facility]
--- OUTSIDE RECORDS SUMMARY | 2025-03-07 13:48 | XMS_ITS | Patient Health Record ---
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 , [address], [place] [address] Test performed by [facility], [facility] Sodium 140 135-145 mmol/L Potassium 4.6 3.5-5.3 [...] Interpretation:Normal Performing Lab: Notes/Report: Test performed by [facility] [address] [place] [address] , [place] [address] Marciano Vines MD, [employer] CLIA: [id number] Thyroxine Free (free T4) 1.11 0.86-1.76 ng/dL P-Lipid Panel Reviewed date:08/17/2024 03:43:07 PM Interpretation:chol/hdl 4.59, non-hdl 147, ldl 133 Performing Lab: Notes/Report: Test performed by [facility] [address] [place] [address] , [place] [address] Marciano Vines MD, [employer] CLIA: [id number] Cholesterol 188 <200 mg/dL Triglycerides 72 <150 [...] Interpretation:Normal Performing Lab: Notes/Report: Test performed by [facility], [address] , [address], [place] [address] Marciano Vines MD, [employer] CLIA: [id number] TSH 1.95 0.43-5.25 mU/L Reason For Referral No Information Medications Medication SIG (Take, Route, Frequency, Duration) Notes Start Date End Date Status Rizatriptan Benzoate 5 MG 1 tablet Orall y Once a day; Duration: 30 days 09/30/2024 Active Linzess 145 MCG 1 capsule at least 3 0 minutes before the first meal of the day on an empty stomach Orally Once a day; Duration: 90 days 08/10/2024 Active Imitrex 50 MG 1 tablet as needed, may take second dose at least 2 hours after first dose up to 4 tablets per day as needed Orally Once a day, prn 08/16/2024 Active hydrOXYzine HCl 25 MG 1-2 tablets as nee ded Orally Once a day at night; Duration: 30 days 08/10/2024 Active Ubrelvy 100 MG 1 tablet as needed, may take second dose at least 2 hours after first dose up to 2 tablets per day as needed Orally Once a day; Duration: 30 days 08/10/2024 Active Problems Problem Type SNOMED Code ICD Code Onset Dates Problem Status W/U Status Risk Notes Problem Anxiety disorder (110917581) Anxiety disorder, unspecified (F41.9) Active confirmed Problem Thyroid nodule (134349530) Thyroid nodule (E04.1) Active confirmed Problem Acquired hypothyroidism (757398658) Acquired hypothyroidism (E03.9) Active confirmed Problem Obese class II (289597264155300) BMI 38.0-38.9,adult (Z68.38) Active confirmed Problem Insomnia (217693668) Insomnia, unspecified type (G47.00) Active confirmed Problem Irritable bowel syndrome characterized by constipation (967077867) Irritable bowel syndrome with constipation (K58.1) Active confirmed Problem Refractory migraine (697649183) Intractable migraine without status migrainosus, unspecified migraine type (G43.919) Active confirmed Problem Anxiety depression (116316862) Anxiety with depression (F41.8) Active confirmed Problem Refractory migraine with aura (896642489) Intractable migraine with aura with status migrainosus (G43.111) Active confirmed Vital Signs Heart Rate 81 /min 08/10/2024 Blood pressure diastolic 78 mm Hg 08/10/2024 Height 60 in 08/10/2024 Blood pressure systolic 124 mm Hg 08/10/2024 Weight 196.2 lbs 08/10/2024 BMI 38.31 kg/m2 08/10/2024 Encounters Encounter Location Date Provider Diagnosis [facility] [address] [place] [id number] 08/10/2024 Teresita Elle Intractable migraine without status migrainosus, unspecified migraine type G43.919 ; Thyroid nodule E04.1 ; Lipid screening Z13.220 ; Non-recurrent acute serous otitis media of right ear H65.01 ; Chronic constipation K59.09 ; Insomnia, unspecified type G47.00 and BMI 38.0-38.9,adult Z68.38 [facility] [address] [place], [place] [id number] 08/12/2024 Teresita Elle Acquired hypothyroid ism E03.9 and Lipid screening Z13.220 [facility] [address] [place], [place] [id number] 08/10/2024 Teresita Yayady [facility] [address] [place], [place] [id number] 08/17/2024 Teresita Almeida [facility] [address] [place], [place] [id number] 09/07/2024 R Guillermo Alivia [facility] [address] [place], [place] [id number] 09/27/2024 Teresita Almeida [facility] [address] [place], [place] [id number] 10/07/2024 R Guillermo Alivia Intractable migraine without status migrainosus, unspecified migraine type G43.919 [facility] [address] [place], [place] [id number] 10/11/2024 R Guillermo Alivia Intractable migraine without status migrainosus, unspecified migraine type G43.919 and Insomnia, unspecified type G47.00 [facility] [address] [facility] [address] [place], [place] [id number] 10/12/2024 R Guillermo Alivia Intractable migraine without status migrainosus, unspecified migraine type G43.919 Assessments Encounter Date Diagnosis (ICD Code) Assessment Notes Treatment Notes Treatment Clinical Notes Section Notes 08/10/2024 Thyroid nodule (ICD-10 - E04.1) 08/12/2024 Lipid screening (ICD-10 - Z13.220) 08/12/2024 Acquired hypothyroidism (ICD-10 - E03.9) 10/07/2024 Intractable migraine without status migrainosus, unspecified migraine type (ICD-10 - G43.919) 08/10/2024 Intractable migraine without status migrainosus, unspecified migraine type (ICD-10 - G43.919) 10/11/2024 Intractable migraine without status migrainosus, unspecified migraine type (ICD-10 - G43.919) 10/12/2024 Intractable migraine without status migrainosus, unspecified migraine type (ICD-10 - G43.919) 10/11/2024 Insomnia, unspecified type (ICD-10 - G47.00) 08/10/2024 Lipid screening (ICD-10 - Z13.220) 08/10/2024 Non-recurrent acute serous otitis media of right ear (ICD-10 - H65.01) 08/10/2024 Chronic constipation (ICD-10 - K59.09) 08/10/2024 Insomnia, unspecified type (ICD-10 - G47.00) 08/10/2024 BMI 38.0-38.9,adult (ICD-10 - Z68.38) 08/10/2024 Other Will come back tomorrow for fasting labs CBC, CMP, LIpid, TSH, Free T4 Plan Of Treatment Pending Test Test Name Order Date xultrasound : thyroid 08/10/2024 Insurance Providers Payer Name Payer Address Payer Phone Subscriber Number Group Number Insured Name Patient Relationship to Insured Coverage Start Date Coverage End Date [employer] [address] [place] [address] [id number] JEANNA ESPINO Self - patient is the insured Medications Administered Medication Instructions Date of Administration Dosage Notes phenergan 25 mg/ml 01/05/2019 12.5 mg Toradol 01/05/2019 0.5 mg Medical (General) History Medical History History ICD Code Hypothyroidism Surgical History Surgery Date(Month/Year) C section x 5 Ureoscopy 2023 Hospitalization History Reason Date(Month/Year)
--- OUTSIDE RECORDS SUMMARY | 2025-03-07 13:48 | XMS_ITS | Clinical Summary ---
Author Organization [facility] Address [address] [place] [address] Phone Care Team Providers Care Bulb Inspector Name Role Phone Claudio Dumont MD Primary [...] 7 AM EDT 09/08/2011 10:25 AM EDT [facility] - 09/12/2011 2:29 PM EDT [id number] [place]: 09/06/2011 00:00 REC: 09/08/2011 10:25 PHYS: LEONEL MINA JR, MD CYTOLOGY GYNECOLOGICAL REPORT Name: PHYLLIS ESPINOTRENA Gerard EPI#: [id number] Case #: [id number] Final Cytologic Diagnosis A. Cervical/Endocervical thinprep pap: Adequacy: Satisfactory for evaluation, endocervical transformation zone component present. Interpretation: Negative for intraepithelial lesion or malignancy. This specimen has been analyzed by the ThinPrep Imaging System ([employer] an automated imaging and review system, which assists the retail sales consultant and/or pathologist in evaluation of cells on Thinprep Pap tests. Electronically Signed Out By Misti TORRES([facility]) Source of Specimen(s) A: Cervical/Endocervical thinprep pap Clinical History Date of Last Menstrual Period: 08/18/11 Signed out at [facility], [address] [place] [address] [facility] Non-Formatted Report [id number] REM[place]: 09/06/2011 00:00 REC: 09/08/2011 10:25 PHYS: LEONEL MINA JR, MD CYTOLOGY GYNECOLOGICAL REPORT Name: [place]IA ESPINO EPI#: [id number] Case #: [id number] Procedure\Addenda HPV High Risk Date Ordered: 09/10/2011 [...] and/or anti-fungal creams. HPV testing performed at [facility], [address] [place], [place] [id number]. Final Cytologic Diagnosis A. Cervical/Endocervical thinprep pap: Adequacy: Satisfactory for evaluation, endocervical transformation zone component present. Interpretation: Negative for intraepithelial lesion or malignancy. This specimen has been analyzed by the ThinPrep Imaging System ([employer] an automated imaging and review system, which assists the retail sales consultant and/or pathologist in evaluation of cells on Thinprep Pap tests. Electronically Signed Out By Misti TORRES([facility]) Source of Specimen(s) A: Cervical/Endocervical thinprep pap Clinical History Date of Last Menstrual Period: 08/18/11 Signed out at [facility], [address] [place] [address] [facility] [employer] Non-Formatted Report us Leonel Mina Jr., MD PATHOLOGY/CYTOLOGY [place] [address] from Last 3 Months or Most Recently Relevant to Health Maintenance Insurance [employer] [place] [address] [employer] NOT [employer] Care Teams Bulb Inspector Relationship Specialty Start Date End Date Claudio Dumont MD PCP - General 07/12/10
== END 2025-03-07 23:59 | disposition home or self-care (01) ==
LOC: RAD 13:44
PROVIDERS: PCP Physician Assistant; Visit Provider Nurse Practitioner
DX: E04.2 Nontoxic multinodular goiter (principal); E03.9 Hypothyroidism, unspecified
CPT/HCPCS: 76536